=== PATIENT | male | born 1965 | race Caucasian/White ===

== ENCOUNTER → 2019-11-17 10:55 | Outpatient (CLI) | payer BC, SELFPAY ==
--- NOTE | ~2019-11-17 | US_ITS ---
EXAMINATION: US thyroid DATE: 11/17/2019 11:10 INDICATION: Abnormal weight gain. TECHNIQUE: Multiple ultrasound images of the thyroid were obtained. COMPARISON: None. FINDINGS: The right thyroid lobe measures 4.1 x 2.4 x 1.6 cm. The left thyroid lobe measures 3.6 x 1.3 x 1.2 c m. There is normal echotexture and echogenicity throughout the thyroid gland. No discrete nodules id entified. Normal vascular flow is present. IMPRESSION: 1. Normal thyroid. Reviewed, dictated and finalized at location A. IMPRESSION: 1. Normal thyroid.
== END ==
PROVIDERS: PCP Family Medicine; Visit Provider Internal Medicine Endocrinology, Diabetes & Metabolism
DX: R63.5 Abnormal weight gain (principal)
CPT/HCPCS: 76536

== ENCOUNTER 2020-12-22 16:00 | Outpatient (RCR) | payer BC, SELFPAY ==
[2020-11-04 14:13] VITALS: BMI 48.8
[2020-11-04 14:25] VITALS: BMI 48.8
== END 2021-01-19 14:55 | disposition home or self-care (01) ==
LOC: ANHDMC 16:00
PROVIDERS: PCP Family Medicine; Visit Provider Internal Medicine Endocrinology, Diabetes & Metabolism
DX: E11.65 Type 2 diabetes mellitus with hyperglycemia (principal); Z71.3 Dietary counseling and surveillance; Z71.89 Other specified counseling
CPT/HCPCS: 97802; G0108

== ENCOUNTER 2021-07-26 16:56 | Emergency (ER) | payer BC, SELFPAY ==
[2021-07-26 16:58] VITALS: BP 187/72; PULSE 104; RESP 20; TEMP 36.5; O2SAT 95
--- NOTE | 2021-07-26 17:12 | ED.BACK ---
HPI - Back Pain/Injury General Chief Complaint: Back Pain/Injury Stated Complaint: back pain Time Seen by Provider: 07/26/21 17:05 History of Present Illness HPI Narrative: 55-year-old male presents here with lower back pain, he states that he was cutting up a shed and tossing in the dumpster, and that he hurt his back about 2 days ago, it seems to be more worse on the right lower back, does not radiate anywhere, no numbness or tingling, no chest pain or abdominal pain, no difficulty breathing, it is only worse with movements. No family history of dissection. Related Data Home Medications Medication Instructions Recorded Confirmed insulin regular hum U-500 conc 500 500 unit subcut ONCE 06/29/21 06/29/21 unit/mL subcutaneous soln (Humulin R U-500 (Concentrated) Insulin) Allergies Allergy/AdvReac Type Severity Reaction Status Date / Time adhesive Allergy Mild rash Verified 07/26/21 17:00 No Known Allergies Allergy Verified 07/26/21 17:00 Review of Systems Review of Systems: CONST: No fever. C/V: No chest pain RESP: No cough GI: No abdominal pain : No dysuria. M/S: Right lower back pain SKIN: No rash. NEURO: [No focal numbness or weakness] [facility] Past Medical History Medical History Essential (primary) hypertension Hypogonadism in male Mixed hyperlipidemia Obesity, morbid, BMI 50 or higher Obstructive sleep apnea syndrome Type 1 diabetes mellitus with diabetic neuropathy Family History Family History Father Family history of coronary artery disease Other Diabetes mellitus Social History Social History Smoking status: Never smoker Second hand tobacco smoke exposure: Yes Alcohol intake: never Spiritual care concerns: No Exam Narrative: EXAMINATION OF ORGAN SYSTEMS/BODY AREAS: Constitutional: Vital signs per nursing GENERAL:[No acute distress, non-toxic appearing.] Sitting comfortably in the room. HEAD: Normal with no signs of head trauma. EYES: EOMI, conjunctiva normal ENT: Hearing grossly intact LUNGS: Nonlabored breathing. HEART: [Regular rate and rhythm] ABD: [Soft], [nontender to palpation] EXT: Normal range of motion BACK: Tenderness to palpation right lower back; no midline tenderness SKIN: [No rashes or lesions.] NEURO: [Alert and oriented x 3. No gross focal sensory or strength deficits.] Course Vital Signs Vital signs: Vital Signs Temperature 97.7 F 07/26/21 16:58 Pulse Rate 104 H 07/26/21 16:58 Respiratory Rate 20 07/26/21 16:58 Blood Pressure 187/72 H 07/26/21 16:58 Pulse Oximetry 95 07/26/21 16:58 Oxygen Delivery Room Air 07/26/21 16:58 Temperature 97.7 F 07/26/21 16:58 Pulse Rate 104 H 07/26/21 16:58 Respiratory Rate 20 07/26/21 16:58 Blood Pressure 187/72 H 07/26/21 16:58 Pulse Oximetry 95 07/26/21 16:58 Oxygen Delivery Room Air 07/26/21 16:58 Procedures Other Procedure Procedure 1: Other Procedure: Trigger point injection Verbal consent obtained from patient. Area of maximal tenderness in right lower back is cleaned well, with sterile technique 3 cc of lidocaine with epi injected across several planes in the area, patient tolerated this well. No complications. MDM - Back Pain/Injury MDM Narrative Medical decision making narrative: ED COURSE AND MEDICAL DECISION MAKING: ? 55-year-old male with acute back pain without midline tenderness. Normal motor and sensory exam. Patient able to ambulate. No evidence of acute cord compression, osteomyelitis/discitis or cauda equina without saddle anesthesia, urinary retention/incontinence, numbness/tingling in lower extremities, fever, history of IV drug use, cancer or immunosuppression. Doubt AAA or aortic dissection without severe pain/discomfort or any neurovascular deficits. [Ketorolac 30mg IM] given for symptom
[2021-07-26] MEDS: KETOROLAC 30 MG/ML VIAL (*BKC) IM (17:28)
[2021-07-26] MEDS: LIDOCAINE HCL 1% LOCAL INJ 20 ML VIAL (17:28)
== END 2021-07-26 17:51 | disposition home or self-care (01) ==
LOC: ANHED 17:31
PROVIDERS: Emergency Provider Emergency Medicine; PCP Family Medicine
DX: M54.50 Low back pain, unspecified (principal); I10 Essential (primary) hypertension; E78.2 Mixed hyperlipidemia; E10.9 Type 1 diabetes mellitus without complications; Z79.4 Long term (current) use of insulin
CPT/HCPCS: 96372; 99283; J1885

== ENCOUNTER 2021-08-01 16:11 | Emergency (ER) | payer BC, SELFPAY ==
[2021-08-01 16:13] VITALS: BP 156/98; PULSE 81; RESP 18; TEMP 36.8; O2SAT 98
[2021-08-01] MEDS: ORPHENADRINE CITRATE 100 MG TABLET.ER PO (17:23)
[2021-08-01] MEDS: KETOROLAC 30 MG/ML VIAL (*BKC) IM (17:23)
[2021-08-01] MEDS: HYDROcodone/acetaminophen (*CRX) 5-325 MG TABLET 1 TAB PO (17:23)
[2021-08-01] MEDS: LIDOCAINE 5% PATCH 1 PATCH TRANSDERM (17:27)
--- NOTE | 2021-08-01 18:53 | ED.BACK ---
HPI - Back Pain/Injury General Chief Complaint: Back Pain/Injury Stated Complaint: Back pain Time Seen by Provider: 08/01/21 16:20 Source: patient Mode of arrival: ambulatory History of Present Illness HPI Narrative: 55-year-old male seen here last week for similar symptoms. Last week patient was working in his house all weekend when he threw his back out . Patient was treated here had noted some improvement take it easy all week then started working and lifting heavy things again when his back started hurting. Patient currently rating pain 8 out of a 10. Denies any urinary incontinence, stool incontinence, saddle paresthesia, or leg weakness. Pain is localized to the lower back. Patient denies any IV drug usage. Related Data Home Medications Medication Instructions Recorded Confirmed insulin regular hum U-500 conc 500 500 unit subcut ONCE 06/29/21 06/29/21 unit/mL subcutaneous soln (Humulin R U-500 (Concentrated) Insulin) Allergies Allergy/AdvReac Type Severity Reaction Status Date / Time adhesive Allergy Mild rash Verified 07/26/21 17:00 No Known Allergies Allergy Verified 07/26/21 17:00 Review of Systems Review of Systems: CONSTITUTIONAL: Denies fever, chills, or sweats. EYES: Denies visual changes, redness, or discharge. ENT: Denies rhinorrhea, congestion, sore throat, or otalgia. CARDIOVASCULAR: Denies chest pain, palpitations, or edema. RESPIRATORY: Denies cough or dyspnea. GASTROINTESTINAL: Denies abdominal pain, nausea, vomiting, or diarrhea. GENITOURINARY: Denies dysuria or hematuria. SKIN: Denies rash or itching. MUSCULOSKELETAL: Low back pain. Denies joint pain, or myalgia. NEUROLOGIC: Denies headache, numbness, dizziness, or weakness. PSYCHIATRIC: Denies anxiety or depression. [facility] Past Medical History Medical History Essential (primary) hypertension Hypogonadism in male Mixed hyperlipidemia Obesity, morbid, BMI 50 or higher Obstructive sleep apnea syndrome Type 1 diabetes mellitus with diabetic neuropathy Family History Family History Father Family history of coronary artery disease Other Diabetes mellitus Social History Social History Smoking status: Never smoker Second hand tobacco smoke exposure: Yes Alcohol intake: never Spiritual care concerns: No Exam Narrative: GENERAL: Well-appearing, well-nourished, and in no acute distress. HEAD: Normocephalic, atraumatic. EYES: PERRLA and EOMI. NECK: Supple. No adenopathy or masses. No carotid bruits or JVD CHEST: Clear to auscultation. No respiratory distress. No wheezes rales or rhonchi HEART: Regular rate and rhythm. No murmur heard. Normal peripheral pulses. ABDOMEN: Soft, nontender, nondistended, normal active bowel sounds. EXTREMITIES: Normal range of motion. No edema. SKIN: Warm, dry, no rash. NEURO: No focal deficits. Alert and oriented x3. PSYCH: Normal mood and affect. Back/Spine/Pelvis: Cervical Spine: normal cervical lordosis and cervical ROM normal Thoracic/Lumbar Spine: thoraco-lumbar spasm bilaterally, No thoracic spinal tenderness and lumbar spinal tenderness Course Vital Signs Vital signs: Vital Signs Temperature 36.8 C 08/01/21 16:13 Pulse Rate 81 08/01/21 16:13 Respiratory Rate 18 08/01/21 16:13 Blood Pressure 156/98 H 08/01/21 16:13 Pulse Oximetry 98 08/01/21 16:13 Oxygen Delivery Room Air 08/01/21 16:13 Temperature 36.8 C 08/01/21 16:13 Pulse Rate 81 08/01/21 16:13 Respiratory Rate 18 08/01/21 16:13 Blood Pressure 156/98 H 08/01/21 16:13 Pulse Oximetry 98 08/01/21 16:13 Oxygen Delivery Room Air 08/01/21 16:13 MDM - Back Pain/Injury MDM Narrative Medical decision making narrative: Patient's pain is positional in nature and localized to back without signs of cord compression or
== END 2021-08-01 17:33 | disposition home or self-care (01) ==
PROVIDERS: Emergency Provider Nurse Practitioner Family; PCP Family Medicine
DX: M54.50 Low back pain, unspecified (principal); E10.40 Type 1 diabetes mellitus with diabetic neuropathy, unspecified; I10 Essential (primary) hypertension; E78.2 Mixed hyperlipidemia; E66.01 Morbid (severe) obesity due to excess calories; Z68.43 Body mass index [BMI] 50.0-59.9, adult; G47.33 Obstructive sleep apnea (adult) (pediatric); Z79.4 Long term (current) use of insulin
CPT/HCPCS: 96372; 99283; A9270; J1100; J1885

== ENCOUNTER 2021-08-16 09:15 | Emergency (ER) | payer BC, SELFPAY ==
--- NOTE | 2021-08-16 09:23 | ED.EYEPROB ---
HPI - Eye Problem General Chief complaint: Eye Problems Stated complaint: right eye injury Time Seen by Provider: 08/16/21 09:25 Source: patient Mode of arrival: ambulatory Limitations: no limitations History of Present Illness HPI Narrative: 55-year-old male presented for complaint of pain and swelling to the right after injury yesterday. He states he broke a metal drill bit and it flew into his eye, he states he believes his eye was closed at the time. Endorses the pain persisted last night and this morning he woke with eye matted shut. Endorses blurry vision and foreign body sensation. Currently rates pain 8 out of 10. He has not taken anything for pain. Also endorses covid exposure at home and reports symptoms sinus congestion, runny nose, cough and fatigue. MD chief complaint: eye pain Related Data Home Medications Medication Instructions Recorded Confirmed insulin regular hum U-500 conc 500 500 unit subcut ONCE 06/29/21 08/06/21 unit/mL subcutaneous soln (Humulin R U-500 (Concentrated) Insulin) metformin 500 mg tablet,extended tablet PO 08/16/21 release 24 hr semaglutide 1 mg/dose (4 mg/3 mL) ea subcut 08/16/21 subcutaneous pen injector (Ozempic) Allergies Allergy/AdvReac Type Severity Reaction Status Date / Time adhesive Allergy Mild rash Verified 08/06/21 11:32 No Known Allergies Allergy Verified 08/06/21 11:32 Review of Systems Review of Systems: CONSTITUTIONAL: Denies body aches, fever, chills EYES:Endorses swelling, redness and pain to right eye ENT: reports rhinorrhea, congestion CARDIOVASCULAR: Denies chest pain, palpitations RESPIRATORY: Denies dyspnea. GASTROINTESTINAL: Denies abdominal pain, nausea, vomiting, or diarrhea. SKIN: Denies rash, itching, or wounds. MUSCULOSKELETAL: Denies back pain, joint pain, or myalgia. NEUROLOGIC: Denies headache, numbness, tingling, or weakness. All systems reviewed & are unremarkable except as noted in HPI and below PMFSH Past Medical History Medical History Essential (primary) hypertension Hypogonadism in male Mixed hyperlipidemia Obesity, morbid, BMI 50 or higher Obstructive sleep apnea syndrome Type 1 diabetes mellitus with diabetic neuropathy Family History Family History Father Family history of coronary artery disease Other Diabetes mellitus Social History Social History Smoking status: Never smoker Second hand tobacco smoke exposure: Yes Alcohol intake: never Spiritual care concerns: No Comments At time of signature, I have reviewed and agree with nursing past medical, surgical, social and family history unless otherwise noted. Please see nursing chart for further information. There is no relevant family history pertinent to the presenting complaint Exam Narrative: GENERAL: Well-appearing, morbidly obese EYES: right conjunctival injection, upper eye lid swelling/redness, mild clear drainage, EOMI. Lid eversion showed no FB. Rainey lamp showed corneal abrasion. ENT: Mucous membranes pink and moist. CHEST: No respiratory distress. Clear to auscultation. HEART: Regular rate and rhythm. No murmur appreciated. Normal peripheral pulses. SKIN: Warm, dry, no rash. Normal skin turgor. NEURO: No focal deficits. Alert and oriented x3. Steady gait PSYCH: Normal affect. Course Course Emergency Course: Patient is aware of diagnosis, understands and agrees to treatment plan. Anticipatory guidance given. Patient agrees to follow-up as directed and is aware of reasons to seek care at the emergency department. Portions of this record may have been created with voice recognition software Level of Care: Express Care Visit Procedures FB Removal Eye Foreign Body #1: Foreign Body Removal Date: 08/16/21 Location: eye (R[facility]
[2021-08-16 09:24] VITALS: BP 182/78; PULSE 79; RESP 16; TEMP 36.2; O2SAT 99
--- NOTE | 2021-08-16 09:44 | PC.NURSE ---
eye exam done by automobile mechanic motor.
== END 2021-08-16 09:59 | disposition home or self-care (01) ==
PROVIDERS: Emergency Provider Nurse Practitioner Family
DX: S05.01XA Injury of conjunctiva and corneal abrasion without foreign body, right eye, initial encounter (principal); W20.8XXA Other cause of strike by thrown, projected or falling object, initial encounter; Z20.822 Contact with and (suspected) exposure to COVID-19; I10 Essential (primary) hypertension; E78.2 Mixed hyperlipidemia; E10.42 Type 1 diabetes mellitus with diabetic polyneuropathy; G47.33 Obstructive sleep apnea (adult) (pediatric); E66.01 Morbid (severe) obesity due to excess calories; Z68.43 Body mass index [BMI] 50.0-59.9, adult
CPT/HCPCS: 87426; 99213; A9270; C9803; G0463

== ENCOUNTER 2022-01-11 00:22 | Day surgery (SDC) | payer BC, SELFPAY ==
[2021-12-31 14:56] VITALS: BMI 50.1
[2022-01-11 08:12] VITALS: BP 161/72; PULSE 74; RESP 18; TEMP 36.7; O2SAT 99; BMI 49.1
[2022-01-11] MEDS: LACTATED RINGERS 1,000 ML 150 ML IV CONT (08:35)
[2022-01-11 08:37] LABS: Glucose Point of Care 136 mg/dl (65-105)
--- NOTE | 2022-01-11 08:45 | PM.HPGS ---
History of Present Illness History of Present Illness Consent: Risks, benefits, and alternatives have been discussed and questions answered. Patient agrees to proceed with procedure. Chief complaint: neoplasm screening Narrative: Gerald Monteiro is a 56 year old male Presents for screening colonoscopy. Patient's current weight appetite and bowel movements are normal. Patient denies abdominal pain. He has had no bleeding. Family history noncontributory. Review of Systems Review of Systems: Review of systems noncontributory. [facility] Past Medical History Medical History Essential (primary) hypertension Hypogonadism in male Mixed hyperlipidemia Obesity, morbid, BMI 50 or higher Obstructive sleep apnea syndrome Type 1 diabetes mellitus with diabetic neuropathy Surgical History Surgical History H/O arthroscopic knee surgery H/O sinus surgery Family History Family History Father Family history of coronary artery disease Other Diabetes mellitus Social History Social History Smoking packs per day: 2 Smoking cigarettes per day: 40.0 Years smoked: 20 Smoking pack-years: 40.00 Smoking status: Never smoker Second hand tobacco smoke exposure: Yes Smoking end date: 02/29/16 Alcohol intake: current Alcohol use details: RARE Substance use: never Substance use type: does not use Living arrangements: with family Gender identity (if verbalized by the patient): Male Spiritual care concerns: No Agree to blood products: Yes Meds Home Medications and Allergies Home Medications Medication Instructions Recorded Confirmed Type insulin regular hum U-500 conc 500 500 unit subcut ONCE 06/29/21 01/11/22 History unit/mL subcutaneous soln (Humulin R U-500 (Concentrated) Insulin) metformin 500 mg tablet,extended 1 tablet PO 2XD 08/16/21 01/11/22 History release 24 hr semaglutide 1 mg/dose (4 mg/3 mL) 1 ea subcut 08/16/21 11/09/21 History subcutaneous pen injector (Ozempic) simvastatin 20 mg tablet 20 mg PO DAILY #90 tabs 09/21/21 01/11/22 Rx lisinopril 20 mg tablet 20 mg PO DAILY #90 tabs 09/22/21 01/11/22 Rx Allergies Allergy/AdvReac Type Severity Reaction Status Date / Time adhesive Allergy Mild rash Verified 01/11/22 08:17 No Known Allergies Allergy Verified 01/11/22 08:17 Vital Signs Vital Signs - 24 hr 01/11/22 08:12 Temperature 98.0 F Pulse Rate 74 Respiratory Rate 18 Blood Pressure 161/72 H Pulse Oximetry 99 Oxygen Delivery Room Air Exam Narrative: Physical exam reveals patient to be alert. Vital signs stable. HEENT exam is unremarkable. Patient is anicteric. Lungs are clear to auscultation and percussion. Heart is without murmur or extra sounds. Abdomen Is obese. bowel sounds present soft nontender with no hepatosplenomegaly. Digital external rectal exam is normal. Assessment and Plan Assessment and plan (1) Colon cancer screening: Code(s): Z12.11 - Encounter for screening for malignant neoplasm of colon Status: Acute Assessment and Plan: Patient presents for screening colonoscopy. Appears to be at average risk for colon polyps. Further recommendations will be given after endoscopy. (2) Obesity, morbid, BMI 50 or higher: Code(s): E66.01 - Morbid (severe) obesity due to excess calories Status: Acute (3) Type 1 diabetes mellitus with diabetic neuropathy: Code(s): E10.40 - Type 1 diabetes mellitus with diabetic neuropathy, unspecified Status: Acute
--- NOTE | 2022-01-11 08:57 | WPDANESEPPF ---
Anes - Initial Pre Proc Eval Procedure: Operation Date: 01/11/22 09:30 Proposed Procedures p Screening Colonoscopy - Ricky Godinez MD Date/Time: 01/11/22 08:57 Surgeon: Ricky Godinez MD Pre Op Diagnosis: neoplasm screening Patient Data Age: 56 Gender: M Height: 1.85 m Weight: 169.1 kg Last Vital Signs Temp 98.0 F 01/11/22 08:12 Pulse 74 01/11/22 08:12 Resp 18 01/11/22 08:12 BP 161/72 H 01/11/22 08:12 Pulse Ox 99 01/11/22 08:12 O2 Del Method Room Air 01/11/22 08:12 Allergies Allergy/AdvReac Type Severity Reaction Status Date / Time adhesive Allergy Mild rash Verified 01/11/22 08:17 No Known Allergies Allergy Verified 01/11/22 08:17 Home Medications Medication Instructions Recorded Confirmed Type insulin regular hum U-500 conc 500 500 unit subcut ONCE 06/29/21 01/11/22 History unit/mL subcutaneous soln (Humulin R U-500 (Concentrated) Insulin) metformin 500 mg tablet,extended 1 tablet PO 2XD 08/16/21 01/11/22 History release 24 hr semaglutide 1 mg/dose (4 mg/3 mL) 1 ea subcut 08/16/21 11/09/21 History subcutaneous pen injector (Ozempic) simvastatin 20 mg tablet 20 mg PO DAILY #90 tabs 09/21/21 01/11/22 Rx lisinopril 20 mg tablet 20 mg PO DAILY #90 tabs 09/22/21 01/11/22 Rx Laboratory Tests 01/11/22 08:28 POC Capillary Glucose 136 mg/dl H mg/dl (65-105) Patient hx anesthesia problems: none Family hx anesthesia problems: none Results Review: All pre-operative results and documents have been reviewed as part of the pre-operative evaluation. [facility] Past Medical History Medical History Essential (primary) hypertension Hypogonadism in male Mixed hyperlipidemia Obesity, morbid, BMI 50 or higher Obstructive sleep apnea syndrome Type 1 diabetes mellitus with diabetic neuropathy Surgical History Surgical History H/O arthroscopic knee surgery H/O sinus surgery Family History Family History Father Family history of coronary artery disease Other Diabetes mellitus Social History Social History Smoking packs per day: 2 Smoking cigarettes per day: 40.0 Years smoked: 20 Smoking pack-years: 40.00 Smoking status: Never smoker Second hand tobacco smoke exposure: Yes Smoking end date: 02/29/16 Alcohol intake: current Alcohol use details: RARE Substance use: never Substance use type: does not use Living arrangements: with family Gender identity (if verbalized by the patient): Male Spiritual care concerns: No Agree to blood products: Yes Anes - Eval Final PreProcedure Day of Procedure 01/11/22 08:57 Patient weight: super morbidly obese Heart: regular rate and rhythm Lungs: clear to auscultation Airway: Mallampati scale class II Neurological: alert and oriented Last oral intake: >/= 8 hours ASA classification: IV Emergent: no Anesthetic plan: proceed Anesthesia type and monitoring: general GIVS and standard monitoring Results Review: All pre-operative results and documents have been reviewed as part of the pre-operative evaluation. Informed Consent: The patient's anesthetic plan and its attendant risks and benefits were discussed with the patient/family/POA. Questions were solicited and answers provided to the satisfaction of the patient/family/POA.
[2022-01-11 09:44] VITALS: BP 119/78; PULSE 79; RESP 18; O2SAT 100
[2022-01-11 09:53] VITALS: BP 115/63; PULSE 71; RESP 18; O2SAT 97
[2022-01-11 10:03] VITALS: BP 115/70; PULSE 70; RESP 18; O2SAT 96
[2022-01-11 10:05] LABS: Glucose Point of Care 124 mg/dl (65-105)
== END 2022-01-11 10:14 | disposition home or self-care (01) ==
PROVIDERS: PCP Family Medicine; Visit Provider Internal Medicine Gastroenterology
PROC: 0DJD8ZZ Inspection of Lower Intestinal Tract, Via Natural or Artificial Opening Endoscopic (ICD-10-PCS; CPT 45378; principal; 2022-01-11 09:30)
DX: Z12.11 Encounter for screening for malignant neoplasm of colon (principal); D12.4 Benign neoplasm of descending colon; K64.8 Other hemorrhoids; I10 Essential (primary) hypertension; E10.40 Type 1 diabetes mellitus with diabetic neuropathy, unspecified; E78.2 Mixed hyperlipidemia; G47.33 Obstructive sleep apnea (adult) (pediatric); Z87.891 Personal history of nicotine dependence; E66.01 Morbid (severe) obesity due to excess calories; Z68.42 Body mass index [BMI] 45.0-49.9, adult; Z79.4 Long term (current) use of insulin; Z79.899 Other long term (current) drug therapy; Z79.84 Long term (current) use of oral hypoglycemic drugs
CPT/HCPCS: 45385; 82948; 88305; J2704; J7120

== ENCOUNTER 2022-02-02 08:07 | Outpatient (CLI) | payer BC, SELFPAY ==
--- NOTE | ~2022-02-02 | US_ITS ---
US art doppler w press LE BI INDICATION: Open toe wound. Evaluate for peripheral vascular stenosis TECHNIQUE: Segmental pressures and plethysmographic and Doppler waveforms of the brachial and lower e xtremity arteries were obtained. COMPARISON: None. FINDINGS: Left brachial artery pressures of 172 mm Hg. Right brachial artery could not be measured. The right ankle-brachial index (SINGH) is 0.99 (normal >= 0.9-1.0). The right great toe-brachial index (TBI) is 0.71 (normal >= 0.60). The left SINGH could not be obtained. The left TBI is 0.93. There is biphasic flow in the lower extremi ties bilaterally. IMPRESSION: 1. Normal right ankle and toe brachial indices. 2: Left SINGH could not be measured. Left TBI is normal measuring 0.93. Reviewed, dictated and finalized at location A. [facility] [employer] [facility]
== END 2022-02-02 08:08 | disposition home or self-care (01) ==
PROVIDERS: PCP Family Medicine; Visit Provider Physician Assistant Medical
DX: M79.604 Pain in right leg (principal); M79.605 Pain in left leg; S91.209A Unspecified open wound of unspecified toe(s) with damage to nail, initial encounter
CPT/HCPCS: 93923

== ENCOUNTER → 2022-09-17 08:29 | Outpatient (CLI) | payer BC, SELFPAY ==
--- NOTE | ~2022-09-17 | CT_ITS ---
CT of the Abdomen: Indication: Adrenal adenoma Technique: 2.5 mm axial scans were obtained through the abdomen prior to and following intravenous a dministration of 100 cc of Omnipaque 350. Dose reduction technique was used on this scan by utilizing automated exposure control and iterative reconstruction technique. The dose-length product (DLP) was 2742.70 mGy-cm. Findings: Scans through the lung bases there is a 5 mm left lower lobe pulmonary nodule. The liver, spleen, pancreas, gallbladder, adrenals and kidneys are within normal limits. There are at herosclerotic calcifications of the aorta. No lymphadenopathy. Visualized bowel loops are unremarkable. No ascites. Impression: New adrenal lesion/mass identified. 5 mm right lower lobe pulmonary nodule. According to Fleischner Society criteria, for a low-risk charo ent, no further follow-up required. For a high-risk patient, consider 12 month follow-up CT. Reviewed, dictated and finalized at [place] [facility]. Impression: New adrenal lesion/mass identified. 5 mm right lower lobe pulmonary nodule. According to Fleischner Society criteri a, for a low-risk patient, no further follow-up required. For a high-risk patie nt, consider 12 month follow-up CT.
--- NOTE | ~2022-09-17 | MR_ITS ---
EXAMINATION: MR pituitary wo/w con DATE: 09/17/2022 10:09 INDICATION: High cortisol levels. TECHNIQUE: Magnetic resonance imaging (MRI) of the brain and brainstem was performed without and with 20 mL MultiHance intravenous contrast. COMPARISON: None. FINDINGS: The pituitary is normal in size with height of 5 mm and concave superior margin. There is a 4 x 5 x 9 mm hypoenhancing mass in the pituitary posteriorly. The infundibulum is at the midline. Th ere is a small focus of increased T2-weighted signal intensity in the left frontal lobe deep white ma tter, which is normal as an isolated finding. There is no intracranial hemorrhage or acute infarction . The ventricles are normal in size. The orbits are normal. There is mucosal thickening in the parana franchesca sinuses. The mastoid air cells are normal. IMPRESSION: 1. 4 x 5 x 9 mm hypoenhancing mass in the pituitary, consistent with a microadenoma. Reviewed, dictated and finalized at location A. IMPRESSION: 1. 4 x 5 x 9 mm hypoenhancing mass in the pituitary, consistent with a microade noma.
[2022-09-17 08:59] LABS: Estimated Glomerular Filt Rate > 60
== END ==
PROVIDERS: PCP Internal Medicine Endocrinology, Diabetes & Metabolism; Visit Provider Internal Medicine Endocrinology, Diabetes & Metabolism
DX: D35.00 Benign neoplasm of unspecified adrenal gland (principal); R94.7 Abnormal results of other endocrine function studies; E23.6 Other disorders of pituitary gland; R91.1 Solitary pulmonary nodule
CPT/HCPCS: 70553; 74170; A9577; Q9967

== ENCOUNTER 2022-09-18 16:53 | Emergency (ER) | payer BC, SELFPAY ==
--- NOTE | ~2022-09-18 | XR_ITS ---
EXAM: XR knee LT min 4V DATE: 09/18/2022 17:18 HISTORY: FALL YESTERDAY ONTO KNEE, PAIN ALL OVER ,HX ACL MCL SURGERY . COMPARISON: None available. FINDINGS: Normal mineralization. No fracture or dislocation. No lytic or blastic lesion. Mild tricom partmental osteoarthritis. Small joint effusion. No erosion or periosteal change. Soft tissues within normal limits. IMPRESSION: No acute osseous finding in the left knee. Reviewed, dictated and finalized at location K.
[2022-09-18 16:56] VITALS: BP 184/97; PULSE 97; RESP 14; TEMP 36.9; O2SAT 98
[2022-09-18] MEDS: KETOROLAC (*BKC) 60 MG/2 ML VIAL IM (17:38)
[2022-09-18] MEDS: ACETAMINOPHEN 500 MG TABLET 1000 MG PO (17:38)
--- NOTE | 2022-09-18 17:58 | ED.LOWEXIN ---
HPI - Extremity Injury (Lower) General Chief Complaint: Extremity Injury, Lower Stated Complaint: fall, L knee pain Time Seen by Provider: 09/18/22 17:09 Source: patient Mode of arrival: ambulatory Limitations: no limitations History of Present Illness HPI Narrative: 56-year-old male presents today with complaints of left knee pain. Patient has a history of issues with the left knee states he has had a meniscal tear and ligament injuries to this knee in the 90s. Has been fine until yesterday when he was walking on the [place] at [facility] and he tripped and hit his knee. Patient with complaints of pain with extension and flexion of the knee but can weight-bear without issue if he is standing still. Complains of pain a 9 out of a 10 with movement but has not taken any pain medications at home. Related Data Home Medications Medication Instructions Recorded Confirmed insulin regular hum U-500 conc 500 500 unit subcut ONCE 06/29/21 01/27/22 unit/mL subcutaneous soln (Humulin R U-500 (Concentrated) Insulin) metformin 500 mg tablet,extended 1 tablet PO 2XD 08/16/21 01/27/22 release 24 hr semaglutide 1 mg/dose (4 mg/3 mL) 1 ea subcut 08/16/21 01/27/22 subcutaneous pen injector (Ozempic) Allergies Allergy/AdvReac Type Severity Reaction Status Date / Time adhesive Allergy Mild rash Verified 09/18/22 17:02 Review of Systems Review of Systems: All systems reviewed & are unremarkable except as noted in HPI and below ENT: Reports as per HPI Cardiovascular: Cardiovascular: Reports as per HPI Respiratory: Respiratory: Reports as per HPI Gastrointestinal: Gastrointestinal: Reports as per HPI Musculoskeletal: Musculoskeletal: Reports as per HPI Integumentary/Breasts: Skin/Breast: Reports as per HPI Neurologic: Reports as per HPI Psychiatric: Psychiatric: Reports as per HPI PMFSH Past Medical History Medical History (Updated 09/18/22 @ 18:09 by Randa Pradhan APRN) Essential (primary) hypertension Hypogonadism in male Mixed hyperlipidemia Obesity, morbid, BMI 50 or higher Obstructive sleep apnea syndrome Paronychia Type 1 diabetes mellitus with diabetic neuropathy Surgical History Surgical History H/O arthroscopic knee surgery H/O sinus surgery Family History Family History (Reviewed 01/27/22 @ 15:53 by Altagracia Hernández [facility]) Father Family history of coronary artery disease Other Diabetes mellitus Social History Social History (Updated 01/27/22 @ 15:54 by Altagracia Hernández [facility]) Smoking packs per day: 2 Smoking cigarettes per day: 40.0 Years smoked: 20 Smoking pack-years: 40.00 Smoking status: Never smoker Second hand tobacco smoke exposure: Yes Smoking end date: 02/29/16 Alcohol intake: current Alcohol use details: RARE Substance use: never Substance use type: does not use Lack of Transportation: No Lack of Food: Never True Current Housing: I Have Housing Concerned About Future Housing: No Difficulty Paying Gas/Electric Bills: No Difficulty Paying for Meds: No Currently Unemployed: No Education: Master's Degree or Higher Difficulty w/ Childcare or Family Care: No Living arrangements: with family Occupation/Education: occupation Gender identity (if verbalized by the patient): Male Sexual Orientation (if Verbalized by the Patient): Straight or Heterosexual Spiritual care concerns: No Agree to blood products: Yes Exam Const: General: cooperative, healthy appearing, comfortable, no acute distress and well developed Orientation/consciousness: patient oriented x3 HENMT: Head: normal to inspection Eyes: General: appearance normal, both eyes and all related structures Resp: Effort & Inspection: normal respiratory effort and able to speak in complete sentences Auscultation: clear to auscultation bilaterally Cardio: Rate: regular rate Rhythm: regular rhythm Hear
== END 2022-09-18 18:20 | disposition home or self-care (01) ==
PROVIDERS: Emergency Provider Nurse Practitioner Family; PCP Family Medicine
DX: M25.562 Pain in left knee (principal); M25.462 Effusion, left knee; I10 Essential (primary) hypertension; E78.2 Mixed hyperlipidemia; E10.9 Type 1 diabetes mellitus without complications; F17.210 Nicotine dependence, cigarettes, uncomplicated
CPT/HCPCS: 73564; 96372; 99283; A9270; J1885

== ENCOUNTER → 2023-04-01 08:41 | Outpatient (CLI) | payer BC, SELFPAY ==
--- NOTE | ~2023-04-01 | MR_ITS ---
EXAMINATION: MR pituitary wo/w con DATE: 04/01/2023 09:39 INDICATION: Benign neoplasm of pituitary gland. TECHNIQUE: Magnetic resonance imaging (MRI) of the brain and brainstem was performed without and with 20 mL MultiHance intravenous contrast. COMPARISON: Brain MRI 09/17/2022 FINDINGS: The pituitary is normal in size with height of 5 mm and concave superior margin. There is a 4 x 5 x 9 mm mass in the posterior pituitary, which is nonenhancing or hypoenhancing. There is no ac velasquez ischemic infarct or intracranial hemorrhage. There are scattered areas of nonspecific increased T 2-weighted signal intensity in the cerebral white matter, which is within normal limits for the patie nt's age. The ventricles are normal in size there is mucosal thickening in the paranasal sinuses. The orbits are normal. The mastoid air cells are normal. IMPRESSION: 1. 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 Reviewed, dictated and finalized at location A. TECHNICIAN IMPRESSION: 1. Stable 4 x 5 x 9 mm mass in the pituitary, consistent with a microadenoma ve rsus Rathke cleft cyst.
== END ==
PROVIDERS: PCP Family Medicine; Visit Provider Neurological Surgery
DX: D35.2 Benign neoplasm of pituitary gland (principal)
CPT/HCPCS: 70553; A9577

== ENCOUNTER 2023-08-22 16:01 | Outpatient (RCR) | payer BC, SELFPAY | END 2023-11-11 08:54 | disposition home or self-care (01) | LOC: ANHDMC 16:01 | PROVIDERS: PCP Family Medicine; Visit Provider Internal Medicine Endocrinology, Diabetes & Metabolism | DX: E10.40 Type 1 diabetes mellitus with diabetic neuropathy, unspecified (principal); Z71.89 Other specified counseling | CPT/HCPCS: G0108 ==

== ENCOUNTER 2024-04-13 12:37 | Outpatient (CLI) | payer BC, SELFPAY ==
--- NOTE | ~2024-04-13 | MR_ITS ---
EXAMINATION: MR pituitary wo/w con DATE: 04/13/2024 13:34 INDICATION: Benign neoplasm of pituitary gland. TECHNIQUE: Magnetic resonance imaging (MRI) of the brain and brainstem was performed without and with 20 mL MultiHance intravenous contrast. COMPARISON: Brain MRI 04/01/2023, 09/17/2022 FINDINGS: The pituitary is normal in size with height of 5 mm and concave superior margin. There is a 4 x 5 x 9 mm mass in the posterior pituitary, which is nonenhancing or hypoenhancing. There is no ac velasquez ischemic infarct or intracranial hemorrhage. There are scattered areas of nonspecific increased T 2-weighted signal intensity in the cerebral white matter, which is within normal limits for the patie nt's age. The ventricles are normal in size. There is mucosal thickening in the paranasal sinuses. Th e orbits are normal. The mastoid air cells are normal. IMPRESSION: 1. 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 Reviewed, dictated and finalized at location A. TRUCK OPERATOR IMPRESSION: 1. Stable 4 x 5 x 9 mm mass in the pituitary, consistent with a microadenoma ve rsus Rathke cleft cyst.
== END 2024-04-13 12:38 | disposition home or self-care (01) ==
LOC: MICIMG 12:38
PROVIDERS: PCP Family Medicine; Visit Provider Neurological Surgery
DX: D35.2 Benign neoplasm of pituitary gland (principal); E23.6 Other disorders of pituitary gland
CPT/HCPCS: 70553; A9577

== ENCOUNTER 2024-07-08 17:45 | Emergency (ER) | payer BC, SELFPAY ==
[2024-07-08] VITALS (10 sets, daily range): BP systolic 135–177; BP diastolic 69–89; PULSE 71–87; RESP 16–20; TEMP 36.6; O2SAT 94–97
--- NOTE | ~2024-07-08 | CT_ITS ---
CT abdomen pelvis w con Ordering provider: Allyson Lin PA-C History: 58 years Male with . right flank pain . Comparison: September 17, 2022 Technique: CT abdomen and pelvis with IV and without oral contrast. Automated exposure control and it erative reconstruction technique were employed. The dose-length product was 1963.73 mGy-cm. 100 Omnip aque 350 was given IV. Findings: VISUALIZED LOWER CHEST: Normal. UPPER ABDOMINAL ORGANS: Liver: Normal. Gallbladder: Normal. Spleen: Normal. Stomach/duodenum: Normal. Pancreas: Normal. Adrenals: Normal. Kidneys: Tiny stones in the left kidney upper pole are noted. PELVIC ORGANS: The bladder is underfilled. BOWEL AND MESENTERY: Colon: No evidence of diverticulitis. Normal appendix. Small Bowel: Normal. No obstruction. Peritoneum/mesentery: No free air or free fluid. No mesenteric lymphadenopathy. RETROPERITONEUM: Mild atheromatous disease of the abdominal aorta. No retroperitoneal lymphadenopat hy. MUSCULOSKELETAL: Superficial soft tissues: The superficial soft tissues are normal. Bones: Age appropriate degenerative changes of the spine. Bilateral hip osteoarthritic changes. Bilat eral sacroiliitis. IMPRESSION: No evidence of appendicitis, diverticulitis or intestinal obstruction. Reviewed, dictated and finalized at location A.
--- OUTSIDE RECORDS SUMMARY | 2024-07-08 17:48 | XMS_ITS | Clinical Summary ---
Author Organization [facility] Office Center Address [address] [place] [address] Care Team Providers Care Field Tech Name Role Phone Lucretia Randolph MD Primary Care Provider [phone] Allergies Active Allergy Reactions Criticality Noted Date Comments Adhesive Rash Medium 02/24/2022 Latex Rash Medium 02/24/2022 Medications simvastatin (ZOCOR) 20 mg tablet 2 Active Ozempic 0.25 mg or 0.5 mg(2 mg/1.5 mL) pen injector injection 2 Active lisinopriL (PRINIVIL,ZESTRIL ) 20 mg tablet 2 Active HumuLIN R U-500 500 unit/mL CONCENTRATED vial for injection 2 Active Omnipod Dash Pods, Gen 4, cartridge 2 Active doxycycline hyclate 100 mg capsule TAKE 1 CAPSULE BY MOUTH EVERY 12 HOURS FOR 7 DAYS 2 Active metFORMIN (GLUCOPHAGE) 1,000 mg tablet Take 1,000 mg by mouth 2 (two) times a day with meals Active Active Problems Problem Noted Date Diagnosed Date Type 1 diabetes mellitus without complication Assessment & Plan (02/24/2022 3:10 PM TRIAGE ASSISTANT): Insulin, metformin Essential hypertension 02/24/2022 Assessment & Plan (02/24/2022 8:55 AM TRIAGE ASSISTANT): lisinopril Hyperlipidemia 02/24/2022 Assessment & Plan (02/24/2022 3:09 PM TRIAGE ASSISTANT): Simvastatin PAD (peripheral artery disease) 02/24/2022 Assessment & Plan (02/24/2022 3:10 PM TRIAGE ASSISTANT): History of toe wounds likely secondary to trauma regarding most recent construction work. Patient does have palpable distal pulses on exam. Borderline inconclusive ultrasound performed at outside facility. Will have patient scheduled for SINGH within the next month to rule out arterial occlusive disease. I will call patient with results Class 3 severe obesity due t o excess calories with serious comorbidity and body mass index (BMI) of 45.0 to 49.9 in adult 02/24/2022 Assessment & Plan (02/24/2022 3:10 PM TRIAGE ASSISTANT): Educated patient the importance of maintaining an appropriate weight as relates to health benefits. Further management as per primary care provider Social History Tobacco Use Types Packs/Day Years Used Date Smoking Tobacco: Former Cigarettes 2 15 1 - 2011 Smokeless Tobacco: Never Tobacco Cessation:Counseling Given: No Personal Safety Answer Date Recorded Getting School Help Needed Not on file 04/29 Sex and Gender Information Value Date Recorded Sex Assigned at Not on file Legal Sex Male 2:39 AM TRIAGE ASSISTANT Gender Identity Not on file Sexual Orientation Not on file Obstetrics History Last Filed Vital Signs Vital Sign Reading Time Taken Comments Blood Pressure - - Pulse - - Temperature - - Respiratory Rate - - Oxygen Saturation - - Inhaled Oxygen Concentration - - Weight 167.8 kg (370 lb) 02/24/2022 8:33 AM TRIAGE ASSISTANT Height 185.4 cm (6' 1 ) 02/24/2022 8:33 AM TRIAGE ASSISTANT Body Mass Index 48.82 02/24/2022 8:33 AM TRIAGE ASSISTANT Plan of Treatment Health Maintenance Due Date Last Done Comments Albumin Creatinine Ratio, Urine 1965 Colon Cancer Screening-Colonoscopy 1965 Depression Screening 1965 Foot Exam 1965 Hemoglobin A1C 1965 Hepatitis C Screening 1965 Prostate Cancer Screening-PSA 1965 TSH Level 1965 eGFR 1965 Dilated Eye Exam 12/30/1975 Lipid Panel 12/30/1975 DTaP/Tdap/Td Vaccine (1 - Tdap) 1976 Hepatitis B Screening 12/30/1983 Regular Well Visit/Exam 18-64 12/30/1983 Zoster Vaccine (1 of 2) 12/30/2015 Pneumococcal vaccine <65 (2 of 2 - PCV) 01/16/2020 01/15/2019 Covid-19 Vaccine (5 - 2023-2 5 season) 2023 11/28/2021, 01/02/2021, 05/03/2020, Additional history exists Influenza Vaccine (#1) 2023 , 12/22/2020, 12/08/2019, Additional history exists Insurance [id number] [place] [id number] [employer] OOS [facility] CHOICE OOS [employer] OOS Care Teams Field Tech Relationship Specialty Start Date End Date Lucretia Randolph MD PCP - General Family Medicine 02/05/22
--- OUTSIDE RECORDS SUMMARY | 2024-07-08 17:48 | XMS_ITS ---
Author Organization [facility] Address [address] [place], [place] [id number] Care Team Providers Care Marble And Granite Polisher Name Role Phone PARVEZ SORIANO Unavailable [phone] Lucretia Randolph Unavailable Unavailable Allergies Allergen (clinical drug ingredient) Drug/Non Drug Allergy documented on EMR Reaction Allergy Type Onset Date Status Adhesive Unknown Allergy Active Latex Latex Unknown Allergy Active REASON FOR VISIT Lamisil follow-up Medications Medication SIG (Take, Route, Frequency, Duration) Notes Start Date End Date Status Insulin Cartridge 3ML Active Mounjaro 5 MG/0.5ML as directed Subcutaneous Active Metformin & Diet Manage Prod Active Lisinopril 20 MG 1 tablet Orally Once a day Active Simvastatin 20 MG 1 tablet in the even ing Orally Once a day Active Social History Tobacco Use: Social History Observation Description Date Details (start date - stop date) Former Smoker NA - 05/22/2014 Tobacco Control (Standard) Question Answer Notes Tobacco use: Former smoker When did you stop smoking? 05/22/2014 Vital Signs Height 73 in 01/19/2024 Weight 350 lbs 01/19/2024 BMI 46.17 kg/m2 01/19/2024 Height-cm 185.42 cm 01/19/2024 Weight-kg 158.76 kg 01/19/2024 Encounters Encounter Location Date Provider Diagnosis [facility] [address] [place], [place] [id number] 01/19/2024 PARVEZ SORIANO Fungal infection of nail B35.1 ; Pain in right toe(s) M79.674 ; Pain in left toe(s) M79.675 and Type 2 diabetes mellitus without complications E11.9 Assessments Encounter Date Diagnosis (ICD Code) Assessment Notes Treatment Notes Treatment Clinical Notes Section Notes 01/19/2024 Fungal infection of nail (ICD-10 - B35.1) 01/19/2024 Pain in right toe(s) (ICD-10 - M79.674) 01/19/2024 Pain in left toe(s) (ICD-10 - M79.675) 01/19/2024 Type 2 diabetes mellitus without complications (ICD-10 - E11.9) 01/19/2024 Other Nails 1-5 Bilateral were debrided extensively with nail nippers and emery board, reducing length and girth to pink healthy tissue with any subungual debris and necrotic tissue removed Plan Of Treatment Treatment Notes Assessment Notes Other Nails 1-5 Bilateral were debrided extensively with nail nippers and emery board, reducing length and girth to pink healthy tissue with any subungual debris and necrotic tissue removed Progress Notes * Gerald PEDROZADOB:[birth year] (58 yo M)Acc No.[id number]:01/19/2024 Patient: Pat DARIANLUZBECKIEMichaelGerald Provider: Cj Soriano DPM :1965 A ge:58 Y S ex:Male Date:01/19/2024 Address:[address] [place], [place] [id number] Subjective: * Chief Complaints: * L amisil follow-up * HPI: H PI: Follow Up Visit P atient presents for follow-up visit for fungal nail check on bilateral feet. He states he has been using Lamisil, but hasn't really noticed any difference. Patient states their problem is unchanged. MA: sea. * ROS: G eneral / Constitutional: Patient denies c hills, fever. E ndocrine: Patient denies e xcessive thirst, frequent urination. ? C ardiovascular: Patient denies s hortness of breath, chest pain. S kin: Patient denies m ole changes. * Medical History: * Surgical History: K nee Surgery 1991 * Hospitalization/Major Diagno stic Procedure: D enies Past Hospitalization * Family History: F ather: unknown, Diabetic. B rother: unknown, Diabetic. S ister: unknown, Diabetic.? * Social History: T obacco Use: T obacco Control (Standard) T obacco use: F ormer smoker W sonu did you stop smoking? 0 05/22/2014 D rugs/Alcohol: D o you drink alcohol?: No. * Medications: T akingInsulin Cartridge 3ML Mounjaro 5 MG/0.5ML Solution Auto-injector as directed Subcutaneous Metformin & Diet Manage Prod Lisinopril 20 MG Tablet 1 tablet Orally Once a day Simvastatin 20 MG Tablet 1 tablet in the evening Orally Once a day Medication List reviewed and reconciled with the patientTaking Insulin Cartridge 3ML Taking Mounjaro 5 MG/0.5ML Solution Auto-injector as directed Subcutaneous Taking Metformin & Diet Manage Prod Taking Lisinopril 20 MG Tablet 1 tablet Orally Once a day Taking Simvastatin 20 MG Tablet 1 tablet in the evening Orally Once a day Medication List reviewed and reconciled with the patient * Allergies: Karen Allan[Allergies Verified] Objective: * Vitals: S hoe Size: 13, Wt:350lbs, Wt-k.76 kg, Ht: 73 in, Ht-cm: 185.42 cm, BMI:46.17Index, Body Surface Area: 2.86. * Examination: P hysical Examination: Gen: T he patient is awake, alert, well developed, well groomed and well nourished. They are in no apparent distress. . Musc: F oot structure is normal. No abnormalities noted. Muscle strength is 5/5 to all joints bilaterally. There is no pain on palpation. . Derm: S kin is warm and dry, with no rashes, good skin turgor and normal hair distribution. Nails are thick, discolored, and dystrophic with subungual debris. They are painful to palpation. . Neuro: G rossly intact to light touch bilateral.. Vasc: D orsalis pedis and posterior tibial pulses 2+ bilaterally. No edema noted. Capillary fill time < 3 seconds to all digits. . Assessment: * Assessment: 1. F ungal infection of nail - B35.1 (Primary) 2 . P ain in right toe(s) - M79.674 3 . P ain in left toe(s) - M79.675 4 . T ype 2 diabetes mellitus without complications - E11.9 Plan: * Treatment: * Immunizations: Immunization record has been reviewed and updated. * Procedure Codes: * Billing Information: * Visit Code: 76478 Office Visit, Est Pt., Level 3. * Procedure Codes: * Sign off status: Completed true * Provider: Cj Soriano DPM Date: 03/20/2023 Generated for Tala sheppard/Marcio/Adrian on: 0 07/08/2024 05:47 PM CDT History and Physical Notes * HPI (History of Present Illness) Category Sub-Category Detail Notes Category Not es HPI Follow Up Visit Patient presents for follow-up visit for fungal nail check on bilateral feet. He states he has been using Lamisil, but hasn't really noticed any difference. Patient states their problem is unchanged. MA: sea Examination Category Sub-Category Detail Notes Category Not es Physical Examination Gen: The patient is awake, alert, well developed, well groomed and well nourished. They are in no apparent distress. Vasc: Dorsalis pedis and p osterior tibial pulses 2+ bilaterally. No edema noted. Capillary fill time < 3 seconds to all digits. Neuro: Grossly intact to li ght touch bilateral. Musc: Foot structure is no rmal. No abnormalities noted. Muscle strength is 5/5 to all joints bilaterally. There is no pain on palpation. Derm: Skin is warm and dry , with no rashes, good skin turgor and normal hair distribution. Nails are thick, discolored, and dystrophic with subungual debris. They are painful to palpation.
--- OUTSIDE RECORDS SUMMARY | 2024-07-08 17:48 | XMS_ITS ---
Author Organization [facility] Address [address] [place], [place] [id number] Care Team Providers Care Social Director Name Role Phone PETER PARVEZ Unavailable [phone] Lucretia Randolph Unavailable Unavailable Allergies Allergen (clinical drug ingredient) Drug/Non Drug Allergy documented on EMR Reaction Allergy Type Onset Date Status Adhesive Unknown Allergy Active Latex Latex Unknown Allergy Active REASON FOR VISIT lamisil check Social History Tobacco Use: Social History Observation Description Date Details (start date - stop date) Former Smoker NA - NA Tobacco Use/Smoking Question Answer Notes Tobacco use: former smoker Encounters Encounter Location Date Provider Diagnosis [facility] [address] [place], [place] [id number] 10/13/2023 PARVEZ SORIANO Fungal infection of nail B35.1 ; Pain in right toe(s) M79.674 ; Pain in left toe(s) M79.675 and Type 2 diabetes mellitus without complications E11.9 Assessments Encounter Date Diagnosis (ICD Code) Assessment Notes Treatment Notes Treatment Clinical Notes Section Notes 10/13/2023 Fungal infection of nail (ICD-10 - B35.1) 10/13/2023 Pain in right toe(s) (ICD-10 - M79.674) 10/13/2023 Pain in left toe(s) (ICD-10 - M79.675) 10/13/2023 Type 2 diabetes mellitus without complications (ICD-10 - E11.9) 10/13/2023 Other Nails 1-5 Bilateral were debrided extensively [...] Notes * Gerald PEDROZADOB:[birth year] (58 yo M)Acc No.[id number]:10/13/2023 Patient: Gerald WOOD Provider: Cj Soriano DPM :1965 A ge:57 Y S ex:Male Date:10/13/2023 Address:On [facility] of [id number] Subjective: * Chief Complaints: * L amisil check * HPI: H PI: Follow Up Visit P atient presents for follow-up visit for nail fungus. Patient states he thinks the medicine is working. He states he kept loosing nails, but hasn't lost any since he started taking the medicine. Patient states their problem is improving. MA: sea. * ROS: G eneral / Constitutional: Patient denies c hills, fever. E ndocrine: Patient denies e xcessive thirst, frequent urination. ? C ardiovascular: Patient denies s hortness of breath, chest pain. S kin: Patient denies m ole changes. * Medical History: * Surgical History: K nee Surgery * Hospitalization/Major Diagno stic Procedure: * Family History: F ather: unknown, Diabetic. B rother: unknown, Diabetic. S ister: unknown, Diabetic.? * Social History: T obacco Use: T obacco Use/Smoking T obacco use: f ormer smoker D rugs/Alcohol: D o you drink alcohol?: No. * Medications: N one * Allergies: L atexAdhesive Objective: * Vitals: * Examination: P hysical Examination: Gen: T [...] complications - E11.9 Plan: * Treatment: * Procedure Codes: * Billing Information: * Visit Code: 74897 Office Visit, Est Pt., Level 3. * Procedure Codes: * Sign off status: Completed true * Provider: Cj Soriano DPM Date: 0 10/13/2023 Generated for Tala sheppard/Marcio/Adrian on: 0 07/08/2024 05:47 PM CDT History and Physical Notes * HPI (History of Present Illness) Category Sub-Category Detail Notes Category Not es HPI Follow Up Visit Patient presents for follow-up visit for nail fungus. Patient states he thinks the medicine is working. He states he kept loosing nails, but hasn't lost any since he started taking the medicine. Patient states their problem is improving. MA: sea Examination Category Sub-Category Detail Notes [...]
--- OUTSIDE RECORDS SUMMARY | 2024-07-08 17:48 | XMS_ITS | Referral Summary ---
Author Organization [facility] Office Center Address [address] [place] [address] Care Team Providers Care Electric Wirer Name Role Phone Lucretia Randolph MD Primary Care Provider [phone] Allergies Active Allergy Reactions Criticality Noted Date [...] complication Assessment & Plan (02/24/2022 3:10 PM INVESTIGATOR OPERATOR): Insulin, metformin Essential hypertension 02/24/2022 Assessment & Plan (02/24/2022 8:55 AM INVESTIGATOR OPERATOR): lisinopril Hyperlipidemia 02/24/2022 Assessment & Plan (02/24/2022 3:09 PM INVESTIGATOR OPERATOR): Simvastatin PAD (peripheral artery disease) 02/24/2022 Assessment & Plan (02/24/2022 3:10 PM INVESTIGATOR OPERATOR): History of toe wounds likely secondary to [...] 02/24/2022 Assessment & Plan (02/24/2022 3:10 PM INVESTIGATOR OPERATOR): Educated patient the importance of maintaining an [...] on file Legal Sex Male 2:39 AM INVESTIGATOR OPERATOR Gender Identity Not on file Sexual Orientation Not on file Last Filed Vital Signs Vital Sign Reading Time Taken Comments Blood Pressure - - Pulse - - Temperature - - Respiratory Rate - - Oxygen Saturation - - Inhaled Oxygen Concentration - - Weight 167.8 kg (370 lb) 02/24/2022 8:33 AM INVESTIGATOR OPERATOR Height 185.4 cm (6' 1 ) 02/24/2022 8:33 AM INVESTIGATOR OPERATOR Body Mass Index 48.82 02/24/2022 8:33 AM INVESTIGATOR OPERATOR Plan of Treatment Not on file Insurance [employer] OOS BLUE ACC CHOICE OOS Member Subscriber Plan / Payer ( fective 2022-Present) Name:Gerald Monteiro Relation to Subscriber:Self Name:Gerald Monteiro Payer ID:[id number] ([facility]) Type:Degreed Address: [address] [place] [address] BLUE ACCESS OOS Member Subscriber Plan / Payer ( fective 2022-Present) Name:Gerald Monteiro Relation to Subscriber:Self Name:Gerald Monteiro Payer ID:[id number] ([facility]) Type:Degreed Address: [place] [id number] [place] [address] Care Teams Electric Wirer Relationship Specialty Start Date End Date Lucretia Randolph MD PCP - General Family Medicine 02/05/22
--- OUTSIDE RECORDS SUMMARY | 2024-07-08 17:49 | XMS_ITS ---
Author Organization [facility] Address [address] [place], [place] [id number] Care Team Providers Care Playback Operator Name Role Phone PARVEZ GREEN [phone] Lucretia Randolph Unavailable Unavailable Encounters Encounter Location Date Provider Diagnosis [facility] [address] [place], [place] [id number] 09/20/2023 PARVEZ GREEN Plan Of Treatment No Information Progress Notes * Gerald PEDROZADOB:[birth year] (57 yo M)Acc No.[id number]:09/20/2023 Patient: Gerald WOOD :1965 A ge:57 Y S ex:Male Address:[address] [place] [address] * true * Date: Generated for Deepaki valarie/Marcio/eTransmitting on: 0 07/08/2024 05:49 PM CDT
--- OUTSIDE RECORDS SUMMARY | 2024-07-08 17:49 | XMS_ITS | Patient Health Record ---
Author Organization [facility] Address [address] [place], [place] [id number] Care Team Providers Care Last Inserter Name Role Phone PARVEZ GREEN Unavailable [phone] Lucretia Randolph Unavailable Unavailable Allergies Allergen (clinical drug ingredient) Drug/Non Drug Allergy documented on EMR Reaction Allergy Type Onset Date Status Adhesive Unknown Allergy Active Latex Latex Unknown Allergy Active Reason For Referral No Information Medications Medication SIG (Take, Route, Frequency, Duration) [...] did you stop smoking? 05/22/2014 Vital Signs Height-cm 185.42 cm 01/19/2024 Weight-kg 158.76 kg 01/19/2024 Height 73 in 01/19/2024 Weight 350 lbs 01/19/2024 BMI 46.17 kg/m2 01/19/2024 Encounters Encounter Location Date Provider Diagnosis [facility] [address] [place], [place] [id number] 10/13/2023 PARVEZ GREEN Fungal infection of nail B35.1 ; Pain in right toe(s) M79.674 ; Pain in left toe(s) M79.675 and Type 2 diabetes mellitus without complications E11.9 [facility] [address] [facility] [address] [place], [place] [id number] 01/19/2024 PARVEZ GREEN Fungal infection of nail B35.1 ; Pain in right toe(s) M79.674 ; Pain in left toe(s) M79.675 and Type 2 diabetes mellitus without complications E11.9 [facility] [place] [address] [id number] 08/12/2023 PARVEZ GREEN [facility] [place] [address] [id number] 08/15/2023 PARVEZ GREEN [facility] [place] [address] [id number] 08/15/2023 PARVEZ GREEN [facility] [place] [address] [id number] 09/20/2023 PARVEZ GREEN Assessments Encounter Date Diagnosis (ICD Code) Assessment Notes Treatment Notes Treatment Clinical Notes Section Notes 10/13/2023 Fungal infection of nail (ICD-10 - B35.1) 01/19/2024 Fungal infection of nail (ICD-10 - B35.1) 01/19/2024 Pain in right toe(s) (ICD-10 - M79.674) 10/13/2023 Pain in right toe(s) (ICD-10 - M79.674) 10/13/2023 Pain in left toe(s) (ICD-10 - M79.675) 01/19/2024 Pain in left toe(s) (ICD-10 - M79.675) 01/19/2024 Type 2 diabetes mellitus without complications (ICD-10 - E11.9) 10/13/2023 Type 2 diabetes mellitus without complications (ICD-10 - E11.9) 10/13/2023 Other Nails 1-5 Bilateral were debrided extensively with nail nippers and emery board, reducing length and girth to pink healthy tissue with any subungual debris and necrotic tissue removed 01/19/2024 Other Nails 1-5 Bilateral were debrided extensively with nail nippers and emery board, reducing length and girth to pink healthy tissue with any subungual debris and necrotic tissue removed Plan Of Treatment No Information Insurance Providers Payer Name Payer Address Payer Phone Subscriber Number Group Number Insured Name Patient Relationship to Insured Coverage Start Date Coverage End Date [facility] ([facility] ATTN CLAIMS [address] [place] [address] [id number] Gerald Pedroza Self - patient is the insured Medical (General) History Medical History History ICD Code Sleep apnea Diabetic hypertension high blood pressure Surgical History Surgery Date(Month/Year) Knee Surgery 1991
--- OUTSIDE RECORDS SUMMARY | 2024-07-08 17:49 | XMS_ITS | Clinical Summary ---
Author Organization [facility] Address [address] [place] [address] Care Team Providers Care Clay Miner Name Role Phone Unavailable Primary Care Provider Unavailabl e Immunizations Immunization Administration Dates Next Due Covid-19, Mrna, Lnp-s, PF, 1 00 mcg/0.5 mL Dose (Moderna) 01/02/2021 Social History Tobacco Use Types Packs/Day Years Used Date Smoking Tobacco: Never Assessed Sex and Gender Information Value Date Recorded Sex Assigned at Not on file Legal Sex Male 11:19 AM CDT Gender Identity Not on file Sexual Orientation Not on file Plan of Treatment Health Maintenance Due Date Last Done Comments Hepatitis C Virus (HCV) Screening 1965 TdaP Immunization 1965 Hepatitis B Immunization (1 of 3 - 19+ 3-dose series) 1984 Colonoscopy 2010 Colorectal Cancer Screening 2010 Cologuard 12/30/2015 Immunochemical Fecal Occult Blood 12/30/2015 Zoster Immunization (1 of 2) 12/30/2015 Pneumococcal Immunization (50+ years) (2 of 2 - PCV) 01/16/2020 01/15/2019 PSA Discussion 2020 Influenza Immunization (#1) 10/30/202311/29, 12/08/2019, 12/22/2018, Additional history exists SARS-COV-2 Immunization ( season) 2023 01/02/2021, 05/03/2020, 04/05/2020 Respiratory Syncytial Virus (RSV) Immunization (Adult) (1 - 1-dose 75+ series) 2040 Pneumococcal Immunization Combined Discontinued 01/15/2019 Meningococcal Immunization (ACWY) Aged Out No longer eligible based on patient's age to complete this topic Rotavirus Immunization Aged Out No lo nger eligible based on patient's age to complete this topic
--- OUTSIDE RECORDS SUMMARY | 2024-07-08 18:47 | XMS_ITS | Referral Summary ---
Author Organization [facility] Address [address] [place] [address] Care Team Providers Care Construction Plumber Name Role Phone Lucretia Randolph MD Primary Care Provider [phone] Allergies Active Allergy Reactions Criticality Noted Date [...] complication Assessment & Plan (02/24/2022 3:10 PM SPACE SYSTEMS OPERATIONS SUPERINTENDENT): Insulin, metformin Essential hypertension 02/24/2022 Assessment & Plan (02/24/2022 8:55 AM SPACE SYSTEMS OPERATIONS SUPERINTENDENT): lisinopril Hyperlipidemia 02/24/2022 Assessment & Plan (02/24/2022 3:09 PM SPACE SYSTEMS OPERATIONS SUPERINTENDENT): Simvastatin PAD (peripheral artery disease) 02/24/2022 Assessment & Plan (02/24/2022 3:10 PM SPACE SYSTEMS OPERATIONS SUPERINTENDENT): History of toe wounds likely secondary to [...] 02/24/2022 Assessment & Plan (02/24/2022 3:10 PM SPACE SYSTEMS OPERATIONS SUPERINTENDENT): Educated patient the importance of maintaining an [...] on file Legal Sex Male 2:39 AM SPACE SYSTEMS OPERATIONS SUPERINTENDENT Gender Identity Not on file Sexual Orientation Not on file Last Filed Vital Signs Vital Sign Reading Time Taken Comments Blood Pressure - - Pulse - - Temperature - - Respiratory Rate - - Oxygen Saturation - - Inhaled Oxygen Concentration - - Weight 167.8 kg (370 lb) 02/24/2022 8:33 AM SPACE SYSTEMS OPERATIONS SUPERINTENDENT Height 185.4 cm (6' 1 ) 02/24/2022 8:33 AM SPACE SYSTEMS OPERATIONS SUPERINTENDENT Body Mass Index 48.82 02/24/2022 8:33 AM SPACE SYSTEMS OPERATIONS SUPERINTENDENT Plan of Treatment Not on file Insurance [employer] OOS BLUE ACC CHOICE OOS BLUE ACCESS OOS Care Teams Construction Plumber Relationship Specialty Start Date End Date Lucretia Randolph MD PCP - General Family Medicine 02/05/22
--- OUTSIDE RECORDS SUMMARY | 2024-07-08 18:47 | XMS_ITS | Clinical Summary ---
Author Organization [facility] Address [address] [place] [address] Care Team Providers Care Casing Tester Name Role Phone Lucretia Randolph MD Primary Care Provider [phone] Allergies Active Allergy Reactions Criticality Noted Date [...] complication Assessment & Plan (02/24/2022 3:10 PM HIDE SELECTOR): Insulin, metformin Essential hypertension 02/24/2022 Assessment & Plan (02/24/2022 8:55 AM HIDE SELECTOR): lisinopril Hyperlipidemia 02/24/2022 Assessment & Plan (02/24/2022 3:09 PM HIDE SELECTOR): Simvastatin PAD (peripheral artery disease) 02/24/2022 Assessment & Plan (02/24/2022 3:10 PM HIDE SELECTOR): History of toe wounds likely secondary to [...] 02/24/2022 Assessment & Plan (02/24/2022 3:10 PM HIDE SELECTOR): Educated patient the importance of maintaining an [...] on file Legal Sex Male 2:39 AM HIDE SELECTOR Gender Identity Not on file Sexual Orientation Not on file Obstetrics History Last Filed Vital Signs Vital Sign Reading Time Taken Comments Blood Pressure - - Pulse - - Temperature - - Respiratory Rate - - Oxygen Saturation - - Inhaled Oxygen Concentration - - Weight 167.8 kg (370 lb) 02/24/2022 8:33 AM HIDE SELECTOR Height 185.4 cm (6' 1 ) 02/24/2022 8:33 AM HIDE SELECTOR Body Mass Index 48.82 02/24/2022 8:33 AM HIDE SELECTOR Plan of Treatment Health Maintenance Due Date [...] , 12/22/2020, 12/08/2019, Additional history exists Insurance [address] [place] [id number] [employer] OOS BLUE [facility] CHOICE OOS [employer] OOS Care Teams Casing Tester Relationship Specialty Start Date End Date Lucretia Randolph MD PCP - General Family Medicine 02/05/22
--- OUTSIDE RECORDS SUMMARY | 2024-07-08 18:47 | XMS_ITS | Data Portability ---
Author Organization [facility] [employer], Main Office Address [address] [place] [address] Care Team Providers Care Neurophysiological Technician Name Role Phone DENNISE BULLARD Primary Care Provider [phone] Assessment No assessment recorded. Plan of Treatment Reminders Order Date Submit Date Provider Last Modified By Organization Details Last Modified Time Details Appointments None recorded. Lab lipid panel, serum 2022 023 [employer] [facility], [address], [place], [address], 3 10:49:21 TSH + free T4, serum 2022 023 [employer] [facility], [address], [place], [address], 3 10:49:20 dhea-sulfa te, serum 2022 023 [place] [address] [employer] Jessica [facility], [address], [place], [address], 3 09:54:41 HbA1c (hemoglobi n A1c), blood 2022 023 [facility] [employer] [facility], [address], [place], [address], 3 09:54:40 CMP, serum or plasma 2022 023 [place] [address] [employer] [facility], [address], [place], [address], 3 09:54:40 microalbum in/creatin ine, mass ratio, urine 2022 023 [email or web address] [employer] [facility], [address], [place], [address], 3 09:54:40 Referral None recorded. Procedures None recorded. Surgeries None recorded. Imaging CT, adrenal, w/ wo contrast 2022 023 [facility] (Imaging), [address] [place] [address], [address], 3 16:30:48 MRI, pituitary, w/wo contrast 2022 023 [facility] (Imaging), [address] [place] [address], [address], 3 16:31:00 Medication Orders None recorded. Patient TargetsNo targets recorded. Patient InstructionsNo instructions recorded. Reason for Referral None Reported. Results Created Date Observation Date Name Description Value Unit Range Abnormal Flag Note LastModifiedBy Organization Detail LastModifiedTime 04/18/19 22 04/19/2021 HEMOG LOBIN A1C hemoglobin A1C 7.9 %_of_ total _HGB <5.7 high For someo ne witho ut known diabe pierce, a hemog lobin A1c value of 6.5% or great er indic ates that they may have diabe pierce and this shoul d be confi rmed with a follo w-up test. For someo ne with known diabe pierce, a value <7% indic ates that their diabe pierce is well contr olled and a value great er than or equal to 7% indic ates subop timal contr ol. A1c targe ts shoul d be indiv idual ized based on durat ion of diabe pierce, age, comor bid condi tions , and other consi derat ions. Curre ntly, no conse nsus exist s regar ding use of hemog lobin A1c for diagn osis of diabe pierce for child amanda. Not Available [employer] [facility] [address], [address], 04/19/2021 14:52:48 04/18/19 22 04/19/2021 TSH+F REE T4 TSH 2.81 mIU/L 0.40-4 .50 normal Not Available [address], [address], 04/19/2021 14:52:48 04/18/19 22 04/19/2021 TSH+F REE T4 T4, free 1.2 NG/dL 0.8-1. 8 normal Not Available [address], [address], 04/19/2021 14:52:48 04/18/19 22 04/19/2021 ALBUM IN, RANDO M URINE W/CRE ATINI NE creatinine, random urine 91 mg/dL 20-320 normal Not Available [address], [address], 04/19/2021 14:52:47 04/18/19 22 04/19/2021 ALBUM IN, RANDO M URINE W/CRE ATINI NE albumin, urine 1.6 mg/dL see note: normal Refer ence Range : Refer ence Range Not estab lishe d Not Available [address], [address], 04/19/2021 14:52:47 04/18/19 22 04/19/2021 ALBUM IN, RANDO M URINE W/CRE ATINI NE albumin/crea tinine ratio, random urine 18 mcg/m g_cre at <30 normal The ADA defin es abnor malit ies in album in excre tion as follo ws: Album inuri a Categ ory Resul t (mcg/ mg creat inine ) Patricia l to Mildl y incre ased <30 Moder ately incre ased 30-29 9 Sever julisa incre ased > OR = 300 The ADA recom mends that at least two of three speci mens colle cted withi n a 3-6 month perio d be abnor mal befor e consi ralph g a patie nt to be withi n a diagn ostic categ ory. Not Available [address] [address] [place], [address], 04/19/2021 14:52:47 04/18/19 22 04/19/2021 COMPR EHENS DARRYL METAB OLIC PANEL glucose 112 mg/dL 65-99 high Fasti ng refer ence inter hossein For someo ne witho ut known diabe pierce, a gluco se value betwe en 100 and 125 mg/dL is consi stent with predi abete s and shoul d be confi rmed with a follo w-up test. Not Available [address] , [place], [address], 04/19/2021 14:52:46 04/18/19 22 04/19/2021 COMPR EHENS DARRYL METAB OLIC PANEL urea nitrogen (BUN) 13 mg/dL 7-25 normal Not Available [address] [address] , [place], [address], 04/19/2021 14:52:46 04/18/19 22 04/19/2021 COMPR EHENS DARRYL METAB OLIC PANEL creatinine 0.79 mg/dL 0.70-1 .33 normal For patie nts >49 years of age, the refer ence limit for Creat inine is appro ximat julisa 13% highe r for peopl e ident ified as Afric an-Am joss n. Not Available [facility] [address] [address] , [place], [address], 04/19/2021 14:52:46 04/18/19 22 04/19/2021 COMPR EHENS DARRYL METAB OLIC PANEL eGFR non-afr. gibraltarian 101 mL/mi n/1.7 3m2 > or = 60 normal Not Available [facility] [address] [address] [place], [address], 04/19/2021 14:52:46 04/18/19 22 04/19/2021 COMPR EHENS DARRYL METAB OLIC PANEL eGFR 117 mL/mi n/1.7 3m2 > or = 60 normal Not Available [address], [address], 04/19/2021 14:52:46 04/18/19 22 04/19/2021 COMPR EHENS DARRYL METAB OLIC PANEL BUN/creatini ne ratio not applic able (calc ) 6-22 Not Available [address], [address], 04/19/2021 14:52:46 04/18/19 22 04/19/2021 COMPR EHENS DARRYL METAB OLIC PANEL sodium 139 mmol/ L 135-14 6 normal Not Available [address], [address], 04/19/2021 14:52:46 04/18/19 22 04/19/2021 COMPR EHENS DARRYL METAB OLIC PANEL potassium 4.8 mmol/ L 3.5-5. 3 normal Not Available [address], [address], 04/19/2021 14:52:46 04/18/19 22 04/19/2021 COMPR EHENS DARRYL METAB OLIC PANEL chloride 101 mmol/ L 98-110 normal Not Available [address], [address], 04/19/2021 14:52:46 04/18/19 22 04/19/2021 COMPR EHENS DARRYL METAB OLIC PANEL carbon dioxide 32 mmol/ L 20-32 normal Not Available [address], [address], 04/19/2021 14:52:46 04/18/19 22 04/19/2021 COMPR EHENS DARRYL METAB OLIC PANEL calcium 9.0 mg/dL 8.6-10 .3 normal Not Available [facility] [address], [address], 04/19/2021 14:52:46 04/18/19 22 04/19/2021 COMPR EHENS DARRYL METAB OLIC PANEL protein, total 7.1 g/dL 6.1-8. 1 normal Not Available [address], [address], 04/19/2021 14:52:46 04/18/19 22 04/19/2021 COMPR EHENS DARRYL METAB OLIC PANEL albumin 4.1 g/dL 3.6-5. 1 normal Not Available [address], [address], 04/19/2021 14:52:46 04/18/19 22 04/19/2021 COMPR EHENS DARRYL METAB OLIC PANEL globulin 3.0 g/dL_ (calc ) 1.9-3. 7 normal Not Available [address], [address], 04/19/2021 14:52:46 04/18/19 22 04/19/2021 COMPR EHENS DARRYL METAB OLIC PANEL albumin/glob ulin ratio 1.4 (calc ) 1.0-2. 5 normal Not Available [address], [address], 04/19/2021 14:52:46 04/18/19 22 04/19/2021 COMPR EHENS DARRYL METAB OLIC PANEL bilirubin, total 0.4 mg/dL 0.2-1. 2 normal Not Available [address], [address], 04/19/2021 14:52:46 04/18/19 22 04/19/2021 COMPR EHENS DARRYL METAB OLIC PANEL alkaline phosphatase 64 U/L 35-144 normal Not Available [address] [address] [place], [address], 04/19/2021 14:52:46 04/18/19 22 04/19/2021 COMPR EHENS DARRYL METAB OLIC PANEL AST 19 U/L 10-35 normal Not Available [address], [address], 04/19/2021 14:52:46 04/18/19 22 04/19/2021 COMPR EHENS DARRYL METAB OLIC PANEL ALT 24 U/L 9-46 normal Not Available [address], [address], 04/19/2021 14:52:46 04/18/19 22 04/19/2021 LIPID PANEL WITH REFLE X TO DIREC T LDL cholesterol, total 124 mg/dL <200 normal Not Available [address], [address], 04/19/2021 14:52:46 04/18/19 22 04/19/2021 LIPID PANEL WITH REFLE X TO DIREC T LDL HDL cholesterol 45 mg/dL > or = 40 normal Not Available [address], [address], 04/19/2021 14:52:46 04/18/19 22 04/19/2021 LIPID PANEL WITH REFLE X TO DIREC T LDL triglyceride s 116 mg/dL <150 normal Not Available [address], [address], 04/19/2021 14:52:46 04/18/19 22 04/19/2021 LIPID PANEL WITH REFLE X TO DIREC T LDL LDL-choleste rol 59 mg/dL _(luz c) normal Refer ence range : <100 Colleen able range <100 mg/dL for prima ry preve ntion ; <70 mg/dL for patie nts with CHD or diabe tic patie nts with > or = 2 CHD risk facto rs. LDL-C is now calcu lated using the [facility] kins humau rommel n, which is a valid ated novel metho d provi barbara kelly r accur acy than the Fried felipe equat ion in the estim ation of LDL-C . Darlene n SS et al. YASIR. 2013; 310(1 9): 2061- 2068 (http ://ed ucati on.Qu Giovanna monteroMoxtra. com/f aq/FA Q164) Not Available [facility] [address] [place], [address], 04/19/2021 14:52:46 04/18/19 22 04/19/2021 LIPID PANEL WITH REFLE X TO DIREC T LDL chol/HDLC ratio 2.8 (calc ) <5.0 normal Not Available [address] [address] [address] , [place], [address], 04/19/2021 14:52:46 04/18/19 22 04/19/2021 LIPID PANEL WITH REFLE X TO DIREC T LDL non HDL cholesterol 79 mg/dL _(luz c) <130 normal For patie nts with diabe pierce plus 1 major ASCVD risk facto r, treat ing to a non-H DL-C goal of <100 mg/dL (LDL- C of <70 mg/dL ) is daniel marianoo n. Not Available [facility] [address] [place], [address], 04/19/2021 14:52:46 08/30/19 22 08/30/2021 HEMOG LOBIN A1C hemoglobin A1C 7.7 %_of_ total _HGB <5.7 high For someo ne witho ut known diabe pierce, a hemog lobin A1c value of 6.5% or great er indic ates that they may have diabe pierce and this shoul d be confi rmed with a follo w-up test. For someo ne with known diabe pierce, a value <7% indic ates that their diabe pierce is well contr olled and a value great er than or equal to 7% indic ates subop timal contr ol. A1c targe ts shoul d be indiv idual ized based on durat ion of diabe pierce, age, comor bid condi tions , and other consi derat ions. Curre ntly, no conse nsus exist s arnel jimenez use of hemog lobin A1c for diagn osis of diabe pierce for child amanda. Not Available [address], [address], 08/30/2021 19:33:23 08/30/1908/30/2021 TSH+F REE T4 TSH 2.85 mIU/L 0.40-4 .50 normal Not Available [facility] [address], [address], 08/30/2021 19:33:22 08/30/19 22 08/30/2021 TSH+F REE T4 T4, free 1.1 NG/dL 0.8-1. 8 normal Not Available [address], [address], 08/30/2021 19:33:22 08/30/19 22 08/30/2021 COMPR EHENS DARRYL METAB OLIC PANEL glucose 215 mg/dL 65-99 high Fasti ng refer ence inter hossein For someo ne witho ut known diabe pierce, a gluco se value >125 mg/dL indic ates that they may have diabe pierce and this shoul d be confi rmed with a follo w-up test. Not Available [employer] [address], [address], 08/30/2021 19:33:22 08/30/19 22 08/30/2021 COMPR EHENS DARRYL METAB OLIC PANEL urea nitrogen (BUN) 17 mg/dL 7-25 normal Not Available [employer] [facility] [address], [address], 08/30/2021 19:33:22 08/30/19 22 08/30/2021 COMPR EHENS DARRYL METAB OLIC PANEL creatinine 0.98 mg/dL 0.70-1 .33 normal For patie nts >49 years of age, the refer ence limit for Creat inine is appro ximat julisa 13% highe r for peopl e ident ified as Afric an-Am joss n. Not Available [address], [address], 08/30/2021 19:33:22 08/30/19 22 08/30/2021 COMPR EHENS DARRYL METAB OLIC PANEL eGFR non-afr. gibraltarian 86 mL/mi n/1.7 3m2 > or = 60 normal Not Available [address], [address], 08/30/2021 19:33:22 08/30/19 22 08/30/2021 COMPR EHENS DARRYL METAB OLIC PANEL eGFR 100 mL/mi n/1.7 3m2 > or = 60 normal Not Available [address], [address], 08/30/2021 19:33:22 08/30/19 22 08/30/2021 COMPR EHENS DARRYL METAB OLIC PANEL BUN/creatini ne ratio not applic able (calc ) 6-22 Not Available [address], [address], 08/30/2021 19:33:22 08/30/19 22 08/30/2021 COMPR EHENS DARRYL METAB OLIC PANEL sodium 137 mmol/ L 135-14 6 normal Not Available [address], [address], 08/30/2021 19:33:22 08/30/19 22 08/30/2021 COMPR EHENS DARRYL METAB OLIC PANEL potassium 4.7 mmol/ L 3.5-5. 3 normal Not Available [address], [address], 08/30/2021 19:33:22 08/30/19 22 08/30/2021 COMPR EHENS DARRYL METAB OLIC PANEL chloride 99 mmol/ L 98-110 normal Not Available [address], [address], 08/30/2021 19:33:22 08/30/19 22 08/30/2021 COMPR EHENS DARRYL METAB OLIC PANEL carbon dioxide 29 mmol/ L 20-32 normal Not Available [address], [address], 08/30/2021 19:33:22 08/30/19 22 08/30/2021 COMPR EHENS DARRYL METAB OLIC PANEL calcium 9.6 mg/dL 8.6-10 .3 normal Not Available [address], [address], 08/30/2021 19:33:22 08/30/19 22 08/30/2021 COMPR EHENS DARRYL METAB OLIC PANEL protein, total 7.4 g/dL 6.1-8. 1 normal Not Available [address], [address], 08/30/2021 19:33:22 08/30/19 22 08/30/2021 COMPR EHENS DARRYL METAB OLIC PANEL albumin 4.3 g/dL 3.6-5. 1 normal Not Available [address], [address], 08/30/2021 19:33:22 08/30/19 22 08/30/2021 COMPR EHENS DARRYL METAB OLIC PANEL globulin 3.1 g/dL_ (calc ) 1.9-3. 7 normal Not Available [address], [address], 08/30/2021 19:33:22 08/30/19 22 08/30/2021 COMPR EHENS DARRYL METAB OLIC PANEL albumin/glob ulin ratio 1.4 (calc ) 1.0-2. 5 normal Not Available [address] [place], [address], 08/30/2021 19:33:22 08/30/19 22 08/30/2021 COMPR EHENS DARRYL METAB OLIC PANEL bilirubin, total 0.5 mg/dL 0.2-1. 2 normal Not Available [address], [address], 08/30/2021 19:33:22 08/30/19 22 08/30/2021 COMPR EHENS DARRYL METAB OLIC PANEL alkaline phosphatase 68 U/L 35-144 normal Not Available [address], [address], 08/30/2021 19:33:22 08/30/19 22 08/30/2021 COMPR EHENS DARRYL METAB OLIC PANEL AST 15 U/L 10-35 normal Not Available [address], [address], 08/30/2021 19:33:22 08/30/19 22 08/30/2021 COMPR EHENS DARRYL METAB OLIC PANEL ALT 24 U/L 9-46 normal Not Available [address], [address], 08/30/2021 19:33:22 08/30/19 22 08/30/2021 LIPID PANEL WITH REFLE X TO DIREC T LDL cholesterol, total 133 mg/dL <200 normal Not Available [address], [address], 08/30/2021 19:33:21 08/30/19 22 08/30/2021 LIPID PANEL WITH REFLE X TO DIREC T LDL HDL cholesterol 40 mg/dL > or = 40 normal Not Available [address], [address], 08/30/2021 19:33:21 08/30/19 22 08/30/2021 LIPID PANEL WITH REFLE X TO DIREC T LDL triglyceride s 210 mg/dL <150 high If a non-f astin g speci men was colle cted, consi preston repea t trigl yceri de testi ng on a fasti ng speci men if clini patricia indic ated. Abhay worthington et al. J. of Clin. Lipid ol. 2015; 9:129 -169. Not Available [employer] [facility] [address] [place], [address], 08/30/2021 19:33:21 08/30/19 22 08/30/2021 LIPID PANEL WITH REFLE X TO DIREC T LDL LDL-choleste rol 65 mg/dL _(luz c) normal Refer ence range : <100 Colleen able range <100 mg/dL for prima ry preve ntion ; <70 mg/dL for patie nts with CHD or diabe tic patie nts with > or = 2 CHD risk facto rs. LDL-C is now calcu lated using the Darlene anglin-Hop kins anton carney n, which is a valid ated novel metho d provi ding leticia r accur acy than the Fried felipe equat ion in the estim ation of LDL-C . Darlene anglin SS et al. YASIR. 2013; 310(1 9): 2061- 2068 (http ://ed ucati on.Qu Giovanna StellaService. com/f aq/FA Q164) Not Available [employer] [facility] [address] [place], [address], 08/30/2021 19:33:21 08/30/19 22 08/30/2021 LIPID PANEL WITH REFLE X TO DIREC T LDL chol/HDLC ratio 3.3 (calc ) <5.0 normal Not Available [employer] [facility] [address] [place], [address], 08/30/2021 19:33:21 08/30/19 22 08/30/2021 LIPID PANEL WITH REFLE X TO DIREC T LDL non HDL cholesterol 93 mg/dL _(luz c) <130 normal For patie nts with diabe pierce plus 1 major ASCVD risk facto r, treat ing to a non-H DL-C goal of <100 mg/dL (LDL- C of <70 mg/dL ) is consi mariam givens n. Not Available [address] [address] [place], [address], 08/30/2021 19:33:21 02/14/20 22 02/15/2022 HEMOG LOBIN A1C hemoglobin A1C 7.5 %_of_ total _HGB <5.7 high For someo ne witho ut known diabe pierce, a hemog lobin A1c value of 6.5% or great er indic ates that they may have diabe pierce and this shoul d be confi rmed with a follo w-up test. For someo ne with known diabe pierce, a value <7% indic ates that their diabe pierce is well contr olled and a value great er than or equal to 7% indic ates subop timal contr ol. A1c targe ts shoul d be indiv idual ized based on durat ion of diabe pierce, age, comor bid condi tions , and other consi derat ions. Curre ntly, no conse nsus exist s arnel jimenez use of hemog lobin A1c for diagn osis of diabe pierce for child amanda. Not Available [address] [address] [place], [address], 02/15/2022 22:04:58 02/14/20 22 02/15/2022 TSH+F REE T4 TSH 2.94 mIU/L 0.40-4 .50 normal Not Available [facility] [address] [address] [place], [address], 02/15/2022 22:04:58 02/14/20 22 02/15/2022 TSH+F REE T4 T4, free 1.2 NG/dL 0.8-1. 8 normal Not Available [facility] [address] [address] [place], [address], 02/15/2022 22:04:58 02/14/20 22 02/15/2022 COMPR EHENS DARRYL METAB OLIC PANEL glucose 128 mg/dL 65-99 high Fasti ng refer ence inter hossein For someo ne witho ut known diabe pierce, a gluco se value >125 mg/dL indic ates that they may have diabe pierce and this shoul d be confi rmed with a follo w-up test. Not Available [employer] [address] [address] [place], [address], 02/15/2022 22:04:57 02/14/20 22 02/15/2022 COMPR EHENS DARRYL METAB OLIC PANEL urea nitrogen (BUN) 15 mg/dL 7-25 normal Not Available [address], [address], 02/15/2022 22:04:57 02/14/20 22 02/15/2022 COMPR EHENS DARRYL METAB OLIC PANEL creatinine 0.72 mg/dL 0.70-1 .30 normal Not Available [address] [address] [place], [address], 02/15/2022 22:04:57 02/14/20 22 02/15/2022 COMPR EHENS DARRYL METAB OLIC PANEL eGFR 107 mL/mi n/1.7 3m2 > or = 60 normal The eGFR is based on the CKD-E PI 2020 equat ion. To calcu late the new eGFR from a previ ous Creat inine or Cysta tin C resul t, go to https ://rhett maki.blanca eagle.o federico/josef mcgee/ kdoqi /gfr% 5Fcal culat or Not Available [employer] [address] [address] [place], [address], 02/15/2022 22:04:57 02/14/20 22 02/15/2022 COMPR EHENS DARRYL METAB OLIC PANEL BUN/creatini ne ratio not applic able (calc ) 6-22 Not Available [address] [address] [place], [address], 02/15/2022 22:04:57 02/14/20 22 02/15/2022 COMPR EHENS DARRYL METAB OLIC PANEL sodium 141 mmol/ L 135-14 6 normal Not Available [address], [address], 02/15/2022 22:04:57 02/14/20 22 02/15/2022 COMPR EHENS DARRYL METAB OLIC PANEL potassium 5.0 mmol/ L 3.5-5. 3 normal Not Available [address], [address], 02/15/2022 22:04:57 02/14/20 22 02/15/2022 COMPR EHENS DARRYL METAB OLIC PANEL chloride 103 mmol/ L 98-110 normal Not Available [address], [address], 02/15/2022 22:04:57 02/14/20 22 02/15/2022 COMPR EHENS DARRYL METAB OLIC PANEL carbon dioxide 32 mmol/ L 20-32 normal Not Available [address], [address], 02/15/2022 22:04:57 02/14/20 22 02/15/2022 COMPR EHENS DARRYL METAB OLIC PANEL calcium 9.2 mg/dL 8.6-10 .3 normal Not Available [address], [address], 02/15/2022 22:04:57 02/14/20 22 02/15/2022 COMPR EHENS DARRYL METAB OLIC PANEL protein, total 6.8 g/dL 6.1-8. 1 normal Not Available [address], [address], 02/15/2022 22:04:57 02/14/20 22 02/15/2022 COMPR EHENS DARRYL METAB OLIC PANEL albumin 4.0 g/dL 3.6-5. 1 normal Not Available [facility] [place] [address] [place], [address], 02/15/2022 22:04:57 02/14/20 22 02/15/2022 COMPR EHENS DARRYL METAB OLIC PANEL globulin 2.8 g/dL_ (calc ) 1.9-3. 7 normal Not Available [address] [address] [place], [address], 02/15/2022 22:04:57 02/14/20 22 02/15/2022 COMPR EHENS DARRYL METAB OLIC PANEL albumin/glob ulin ratio 1.4 (calc ) 1.0-2. 5 normal Not Available [address] [address] [place], [address], 02/15/2022 22:04:57 02/14/20 22 02/15/2022 COMPR EHENS DARRYL METAB OLIC PANEL bilirubin, total 0.3 mg/dL 0.2-1. 2 normal Not Available [address] [address] [place], [address], 02/15/2022 22:04:57 02/14/20 22 02/15/2022 COMPR EHENS DARRYL METAB OLIC PANEL alkaline phosphatase 64 U/L 35-144 normal Not Available [address] [address] [place], [address], 02/15/2022 22:04:57 02/14/20 22 02/15/2022 COMPR EHENS DARRYL METAB OLIC PANEL AST 16 U/L 10-35 normal Not Available [address] [address] [place], [address], 02/15/2022 22:04:57 02/14/20 22 02/15/2022 COMPR EHENS DARRYL METAB OLIC PANEL ALT 21 U/L 9-46 normal Not Available [address] [address] [place], [address], 02/15/2022 22:04:57 02/14/20 22 02/15/2022 LIPID PANEL , STAND CHARLES cholesterol, total 115 mg/dL <200 normal Not Available [address], [address], 02/15/2022 22:04:56 02/14/20 22 02/15/2022 LIPID PANEL , STAND CHARLES HDL cholesterol 41 mg/dL > or = 40 normal Not Available [address], [address], 02/15/2022 22:04:56 02/14/20 22 02/15/2022 LIPID PANEL , STAND CHARLES triglyceride s 100 mg/dL <150 normal Not Available [address], [address], 02/15/2022 22:04:56 02/14/20 22 02/15/2022 LIPID PANEL , STAND CHARLES LDL-choleste rol 55 mg/dL _(luz c) normal Refer ence range : <100 Colleen able range <100 mg/dL for prima ry preve ntion ; <70 mg/dL for patie nts with CHD or diabe tic patie nts with > or = 2 CHD risk facto rs. LDL-C is now calcu lated using the Darlene n-Hop kins calcu rommel n, which is a valid ated novel wayne kelly r accur acy than the Fried felipe equat ion in the estim ation of LDL-C . Darlene anglin SS et al. YASIR. 2013; 310(1 9): 2061- 2068 (http ://ed ucati on.Qu britneyDi Health-Connecteds. com/f aq/FA Q164) Not Available [address], [address], 02/15/2022 22:04:56 02/14/20 22 02/15/2022 LIPID PANEL , STAND CHARLES chol/HDLC ratio 2.8 (calc ) <5.0 normal Not Available [address] [place], [address], 02/15/2022 22:04:56 02/14/20 22 02/15/2022 LIPID PANEL , STAND CHARLES non HDL cholesterol 74 mg/dL _(luz c) <130 normal For patie nts with diabe pierce plus 1 major ASCVD risk facto r, treat ing to a non-H DL-C goal of <100 mg/dL (LDL- C of <70 mg/dL ) is consi dered a thera peuti c optio n. Not Available [address] [address] [place], [address], 02/15/2022 22:04:56 07/11/19 23 07/21/2022 LIPID PANEL WITH REFLE X TO DIREC T LDL cholesterol, total 142 mg/dL <200 normal Not Available [address] [place], [address], 07/21/2022 19:08:56 07/11/19 23 07/21/2022 LIPID PANEL WITH REFLE X TO DIREC T LDL HDL cholesterol 43 mg/dL > or = 40 normal Not Available [address], [address], 07/21/2022 19:08:56 07/11/19 23 07/21/2022 LIPID PANEL WITH REFLE X TO DIREC T LDL triglyceride s 123 mg/dL <150 normal Not Available [address] [address] [place], [address], 07/21/2022 19:08:56 07/11/19 23 07/21/2022 LIPID PANEL WITH REFLE X TO DIREC T LDL LDL-choleste rol 79 mg/dL _(luz c) normal Refer ence range : <100 Colleen able range <100 mg/dL for prima ry preve ntion ; <70 mg/dL for patie nts with CHD or diabe tic patie nts with > or = 2 CHD risk facto rs. LDL-C is now calcu lated using the Darlene n-Hop kins calcu latio n, which is a valid ated novel metho d provi ding leticia r accur acy than the Fried felipe equat ion in the estim ation of LDL-C . Darlene n SS et al. YASIR. 2013; 310(1 9): 2061- 2068 (http ://ed ucati on.Qu Giovanna monteroGloucester Pharmaceuticalss. com/f aq/FA Q164) Not Available [facility] [address] [address] [place], [address], 07/21/2022 19:08:56 07/11/1907/21/2022 LIPID PANEL WITH REFLE X TO DIREC T LDL chol/HDLC ratio 3.3 (calc ) <5.0 normal Not Available [facility] [address] [address] [place], [address], 07/21/2022 19:08:56 07/11/1907/21/2022 LIPID PANEL WITH REFLE X TO DIREC T LDL non HDL cholesterol 99 mg/dL _(luz c) <130 normal For patie nts with diabe pierce plus 1 major ASCVD risk facto r, treat ing to a non-H DL-C goal of <100 mg/dL (LDL- C of <70 mg/dL ) is consi dered a sammia jorge c optio n. Not Available [facility] [address] [address] [place], [address], 07/21/2022 19:08:56 07/11/1907/21/2022 COMPR EHENS DARRYL METAB OLIC PANEL glucose 142 mg/dL 65-99 high Fasti ng refer ence inter hossein For someo ne witho ut known diabe pierce, a gluco se value >125 mg/dL indic ates that they may have diabe pierce and this shoul d be confi rmed with a follo w-up test. Not Available [facility] [address] [address] [place], [address], 07/21/2022 19:08:57 07/11/1907/21/2022 COMPR EHENS DARRYL METAB OLIC PANEL urea nitrogen (BUN) 14 mg/dL 7-25 normal Not Available [address], [address], 07/21/2022 19:08:57 07/11/1907/21/2022 COMPR EHENS DARRYL METAB OLIC PANEL creatinine 0.84 mg/dL 0.70-1 .30 normal Not Available [employer] [address], [address], 07/21/2022 19:08:57 07/11/19 23 07/21/2022 COMPR EHENS DARRYL METAB OLIC PANEL eGFR 102 mL/mi n/1.7 3m2 > or = 60 normal The eGFR is based on the CKD-E PI 2020 equat ion. To calcu late the new eGFR from a previ ous Creat inine or Cysta tin C resul t, go to https ://rhett caballero/josef grimm s/ kdoqi /gfr% 5Fcal culat or Not Available [address], [address], 07/21/2022 19:08:57 07/11/1907/21/2022 COMPR EHENS DARRYL METAB OLIC PANEL BUN/creatini ne ratio NOT APPLIC ABLE (calc ) 6-22 Not Available [address], [address], 07/21/2022 19:08:57 07/11/1907/21/2022 COMPR EHENS DARRYL METAB OLIC PANEL sodium 137 mmol/ L 135-14 6 normal Not Available [address], [address], 07/21/2022 19:08:57 07/11/1907/21/2022 COMPR EHENS DARRYL METAB OLIC PANEL potassium 4.4 mmol/ L 3.5-5. 3 normal Not Available [employer] [address], [address], 07/21/2022 19:08:57 07/11/19 23 07/21/2022 COMPR EHENS DARRYL METAB OLIC PANEL chloride 102 mmol/ L 98-110 normal Not Available [address], [address], 07/21/2022 19:08:57 07/11/19 23 07/21/2022 COMPR EHENS DARRYL METAB OLIC PANEL carbon dioxide 28 mmol/ L 20-32 normal Not Available [address], [address], 07/21/2022 19:08:57 07/11/1907/21/2022 COMPR EHENS DARRYL METAB OLIC PANEL calcium 8.9 mg/dL 8.6-10 .3 normal Not Available [address], [address], 07/21/2022 19:08:57 07/11/1907/21/2022 COMPR EHENS DARRYL METAB OLIC PANEL protein, total 7.4 g/dL 6.1-8. 1 normal Not Available [address], [address], 07/21/2022 19:08:57 07/11/1907/21/2022 COMPR EHENS DARRYL METAB OLIC PANEL albumin 4.2 g/dL 3.6-5. 1 normal Not Available [address], [address], 07/21/2022 19:08:57 07/11/1907/21/2022 COMPR EHENS DARRYL METAB OLIC PANEL globulin 3.2 g/dL_ (calc ) 1.9-3. 7 normal Not Available [address], [address], 07/21/2022 19:08:57 07/11/19 23 07/21/2022 COMPR EHENS DARRYL METAB OLIC PANEL albumin/glob ulin ratio 1.3 (calc ) 1.0-2. 5 normal Not Available [address], [address], 07/21/2022 19:08:57 07/11/19 23 07/21/2022 COMPR EHENS DARRYL METAB OLIC PANEL bilirubin, total 0.4 mg/dL 0.2-1. 2 normal Not Available [address], [address], 07/21/2022 19:08:57 07/11/19 23 07/21/2022 COMPR EHENS DARRYL METAB OLIC PANEL alkaline phosphatase 64 U/L 35-144 normal Not Available [address], [address], 07/21/2022 19:08:57 07/11/19 23 07/21/2022 COMPR EHENS DARRYL METAB OLIC PANEL AST 16 U/L 10-35 normal Not Available [address], [address], 07/21/2022 19:08:57 07/11/19 23 07/21/2022 COMPR EHENS DARRYL METAB OLIC PANEL ALT 18 U/L 9-46 normal Not Available [address], [address], 07/21/2022 19:08:57 07/11/19 23 07/21/2022 ALBUM IN, RANDO M URINE W/CRE ATINI NE creatinine, random urine 259 mg/dL 20-320 normal Not Available [address], [address], 07/21/2022 19:08:57 07/11/19 23 07/21/2022 ALBUM IN, RANDO M URINE W/CRE ATINI NE albumin, urine 5.7 mg/dL see note: normal Refer ence Range : Refer ence Range Not estab lishe d Not Available [employer] [facility] [address] [place], [address], 07/21/2022 19:08:57 07/11/1907/21/2022 ALBUM IN, RANDO M URINE W/CRE ATINI NE albumin/crea tinine ratio, random urine 22 mcg/m g_cre at <30 normal The ADA defin es abnor malit ies in album in excre tion as follo ws: Album inuri a Categ ory Resul t (mcg/ mg creat inine ) Patricia l to Mildl y incre ased <30 Moder ately incre ased 30-29 9 Sever julisa incre ased > OR = 300 The ADA recom mends that at least two of three speci mens colle cted withi n a 3-6 month perio d be abnor mal befor e consi ralph g a patie nt to be withi n a diagn ostic categ ory. Not Available [employer] [facility] [address] [address] [address] , [place], [address], 07/21/2022 19:08:57 07/11/1907/21/2022 DEXAM ETHAS ONE dexamethason e 247 NG/dL Refer ence Range s for Dexam ethas one: Basel ine: Less than 20 ng/dL 1 mg dexam ethas one overn ight: 180-5 50 ng/dL (8:00 -10:0 0 AM) This test was devel oped and its milton tical perfo rmanc e violeta cteri stics have been deter mined by [facility] Will tranvishal . It has not been clear ed or appro victor hugo by FDA. This assay has been valid ated pursu ant to the CLIA regul ation s and is used for clini luz purpo ses. Not Available [employer] [facility] [address] [place], [address], 07/21/2022 19:08:58 07/11/1907/21/2022 CORTI KRAIG, A.M. cortisol, A.M. 5.6 mcg/d L normal Refer ence Range 8 a.m. (7-9 a.m.) Speci men: 4.0-2 2.0 Not Available [facility] [address] [address] [place], [address], 07/21/2022 19:08:59 07/11/1907/21/2022 TSH+F REE T4 TSH 1.69 mIU/L 0.40-4 .50 normal Not Available [facility] [address] [address] [place], [address], 07/21/2022 19:08:59 07/11/1907/21/2022 TSH+F REE T4 T4, free 1.3 NG/dL 0.8-1. 8 normal Not Available [facility] [address] [address] [place], [address], 07/21/2022 19:08:59 07/11/1907/21/2022 HEMOG LOBIN A1C hemoglobin A1C 7.7 %_of_ total _HGB <5.7 high For someo ne witho ut known diabe pierce, a hemog lobin A1c value of 6.5% or great er indic ates that they may have diabe pierce and this shoul d be confi rmed with a follo w-up test. For someo ne with known diabe pierce, a value <7% indic ates that their diabe pierce is well contr olled and a value great er than or equal to 7% indic ates subop timal contr ol. A1c targe ts shoul d be indiv idual ized based on durat ion of diabe pierce, age, comor bid condi tions , and other consi derat ions. Curre ntly, no conse nsus exist s regar ding use of hemog lobin A1c for diagn osis of diabe pierce for child amanda. Not Available [facility] [facility] [address] [address] [place], [address], 07/21/2022 19:09:00 08/15/1908/21/2022 ACTH, PLASM A acth, plasma 32 pg/mL 6-50 Refer ence range appli es only to speci mens colle cted betwe en 7am-1 0am. Not Available [employer] [facility] [address] [place], [address], 08/21/2022 15:26:34 08/15/19 23 08/21/2022 CORTI KRAIG, A.M. cortisol, A.M. 14.9 mcg/d L normal Refer ence Range 8 a.m. (7-9 a.m.) Speci men: 4.0-2 2.0 Not Available [facility] [address] [place], [address], 08/21/2022 15:26:35 09/18/19 23 09/17/2022 CT, adren al, w/ wo contr ast No observ ation record ed. [address] (Imaging) [address] [place] [address], [phone], 09/23/2022 16:30:48 09/18/19 23 09/17/2022 MRI, pitui tary, w/wo contr ast No observ ation record ed. [address] (Imaging) [address] [place] [address], [place], [address], 09/23/2022 16:31:00 09/19/19 23 09/18/2022 XR, knee No observ ation record ed. [address], [address], 09/23/2022 16:32:14 10/03/19 23 09/17/2022 CT, adren al, w/ wo contr ast No observ ation record ed. [email or web address] [facility] (Imaging) [address] [place] [address], [phone], 10/15/2022 14:12:28 Result Notes None recorded. Problems Name Problem SNOMED Code Status Onset Date Resolution Date Notes Provider Name and Address Organization Details Recorded Time Cortisol level outside reference range 885291178 Active 2022 Gabi De Paz, RMA null, [place] [facility] 3 15:44:10 Pituitary function test outside reference range 237482566 Active 2022 Demi Bess MD [address], [address], [place], [address] , [employer] [facility] [employer] 3 20:14:28 Adrenal adenoma 386497718 Active 2022 Demi Bess MD [address], [address], [place], [address] , [employer] [facility] [employer] 3 20:15:20 Essential hypertension 40550817 Active 2022 Demi Bess MD [address], [address], [place], [address] , [employer] [facility] [employer] 3 10:46:10 Pituitary microadenoma 022946373 Active 2022 Demi Bess MD [address], [address], [place], [address] , [employer] [facility] [employer] 3 22:17:29 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 2022 Demi Bess MD [address], [address], [place], [address] , [employer] [facility] [employer] 3 22:17:39 Well controlled type 2 diabetes mellitus 438681655 Active 2022 Demi Bess MD [address], [address], [place], [address] , [employer] [facility] [employer] 3 13:50:14 Dyslipidemia 528466301 Active 2021 Not Available [facility] 3 04:34:16 Diabetic peripheral neuropathy 977690478 Active 2021 Not Available [facility] 3 04:34:16 [employer]en[employer] 972681873 Active 2021 Not Available [employer] 3 04:34:16 Uncontrolled type 2 diabetes mellitus 873586279 Active 2021 Not Available [facility] 3 04:34:16 Problem Notes None recorded. Procedures Surgical History Date Name Laterality Status Provider Name and Address Organization Details Recorded Time Knee Surgery completed Not Available [facility] 04/28/2022 04:30:29 Sinus Surgery completed Not Available [facility] 04/28/2022 04:30:29 Imaging Results Imaging Date Name Status LastModified by Organiz ation Details LastModified Time 09/17/2022 CT, adrenal, w/ wo contrast completed [address] (Imaging) [address] [place] [address], [address], 09/23/2022 16:30:48 09/17/2022 MRI, pituitary, w/wo contrast completed [address] (Imaging) [address] [place] [address], [address], 09/23/2022 16:31:00 09/18/2022 XR, knee completed [address] [facility] [address] [place] [address], [address], 09/23/2022 16:32:14 09/17/2022 CT, adrenal, w/ wo contrast completed [address] (Imaging) [address] [place] [address], [address], 10/15/2022 14:12:28 Procedure Notes None recorded. Medical Equipment None Reported. Allergies No known drug allergies Medications Name Sig Start Date Stop Date Status Note LastModified by Organization Details LastModified Time Prescriptio n - Prior Authorizati on Request active Not Available Not Available N ot Available aspirin 81 mg capsule Take by oral route. 09/02 completed Not Available Not Available Not Available prednisone 10 mg tablet 04/12 completed Not Available Not Available Not Available doxycycline hyclate 100 mg capsule TAKE 1 CAPSULE BY MOUTH EVERY 12 HOURS FOR 7 DAYS 04/12 completed Not Available Not Available Not Available Humulin R U-500 (Concentrat ed) Insulin 500 unit/mL subcutaneou s soln active Not Available Not Available Not Available hydrocodone 5 mg-acetamin ophen 325 mg tablet 10/20 completed Not Available Not Available Not Available lisinopril 20 mg tablet Take 1 tablet every day by oral route. 09/02 completed Not Available Not Available Not Available simvastatin 10 mg tablet Take 1 tablet every day by oral route. 03/10 completed Not Available Not Available Not Available tramadol 50 mg tablet 09/02 completed Not Available Not Available Not Available ketorolac 0.5 % eye drops INSTILL 1 DROP IN RIGHT EYE EVERY 6 HOURS NEEDED FOR PAIN 09/02 completed Not Available Not Available Not Available Humalog U-100 Insulin 100 unit/mL subcutaneou s solution active Not Available Not Available N ot Available dexamethaso ne 1 mg tablet 09/02 completed Not Available Not Available Not Available Humulin R Regular U-100 Insulin 100 unit/mL injection solution INJECT 20 UNITS UNDER THE SKIN THREE TIMES DAILY AND EVERY NIGHT AT BEDTIME active Not Available Not Available No t Available simvastatin 20 mg tablet active Not Available Not Available Not Available lisinopril 10 mg tablet 10/20 completed Not Available Not Available Not Available polymyxin B sulfate 10,000 unit-trimet hoprim 1 mg/mL eye drops INSTILL 1 DROP IN RIGHT EYE EVERY 4 HOURS WHILE AWAKE FOR 7 DAYS. DO NOT EXCEED 6 DOSES IN 24 HOURS 09/02 completed Not Available Not Available Not Available Humulin N NPH U-100 Insulin (isophane susp) 100 unit/mL subcutaneou s 06/09 completed Not Available Not Available Not Available orphenadrin e citrate ER 100 mg tablet,exte nded release TAKE 1 TABLET BY MOUTH EVERY 12 HOURS NEEDED FOR MUSCLE SPASM active Not Available Not Available No t Available insulin syringe U-100 with needle 0.3 mL 31 gauge x 16 USE TO INJECT INSULIN FOUR TIMES DAILY active Not Available Not Available No t Available ibuprofen 600 mg tablet 04/12 completed Not Available Not Available Not Available lisinopril 40 mg tablet TAKE 1 TABLET DAILY DIRECTED active Not Available Not Available No t Available metformin ER 500 mg tablet,exte nded release 24 hr TAKE 2 TABLETS TWICE A DAY 2022 active Not Available Not Available Not Avai lable clobetasol 0.05 % topical spray APPLY 1 SPRAY TOPICALLY TO THE AFFECTED AREA TWICE DAILY active Not Available Not Available No t Available Humulin R Regular U-100 Insuln 12/09 completed Not Available Not Available Not Available simvastatin 11/08 completed Not Available Not Available Not Available lisinopril 11/08 completed Not Available Not Available Not Available Humalog U-100 Insulin 12/09 completed Not Available Not Available Not Available BD Insulin Syringe Ultra-Fine 1 mL 30 gauge x 1/2 active Not Available Not Available Not Available ProAir HFA 90 mcg/actuati on aerosol inhaler active Not Available Not Available Not Available Humalog KwikPen (U-100) Insulin 100 unit/mL subcutaneou s inject 15 units TID before meals active Not Available Not Available No t Available BD Ultra-Fine Rosario Pen Needle 32 gauge x 5/32 active Not Available Not Available Not Available Suprep Bowel Prep Kit 17.5 gram-3.13 gram-1.6 gram oral solution MIX AND DRINK DIRECTED 09/02 completed Not Available Not Available Not Available Tresiba FlexTouch U-200 insulin 200 unit/mL (3 mL) subcutaneou s pen Inject 90 units every day by subcutane ous route at bedtime for 90 days. 06/09 completed Not Available Not Available Not Available Humulin R U-500 (Conc) Insulin Kwikpen 500 unit/mL (3 mL) subcutaneou s INJECT UP TO 60 UNITS DAILY active Not Available Not Available No t Available BD Insulin Syringe U-500 1/2 mL 31 gauge x 15/64 active Not Available Not Available Not Available Fiasp FlexTouch U-100 Insulin 100 unit/mL (3 mL) subcutaneou s pen Inject 15 units 3 times a day by subcutane ous route before meals for 90 days. 12/09 completed Not Available Not Available Not Available Ozempic 1 mg/dose (2 mg/1.5 mL) subcutaneou s pen injector INJECT 1 MG UNDER THE SKIN EVERY WEEK DIRECTED active Not Available Not Available No t Available Ozempic 0.25 mg or 0.5 mg (2 mg/1.5 mL) subcutaneou s pen injector Inject 0.25 mg SC weekly x 4 weeks then increase to 0.5 mg SC weekly 04/12 completed Not Available Not Available Not Available Dexcom G6 Sensor device active Not Available Not Available Not Available Dexcom G6 [employer] active Not Available Not Available Not Available Dexcom G6 Transmitter device active Not Available Not Available Not Available Omnipod Dash Pods (Gen 4) subcutaneou s cartridge CHANGE PODS EVERY 3 DAYS active Not Available Not Available No t Available Gvoke HypoPen 2-Pack 1 mg/0.2 mL subcutaneou s auto-inject or Inject 1 mg as needed by subcutane ous route as directed for 1 day. 09/02 completed Not Available Not Available Not Available Ozempic 1 mg/dose (4 mg/3 mL) subcutaneou s pen injector Inject 1 mg every week by subcutane ous route at dinner for 90 days. active Not Available Not Available No t Available Mounjaro 5 mg/0.5 mL subcutaneou s pen injector INJECT 5 MG UNDER THE SKIN EVERY WEEK AT DINNER active Not Available Not Available No t Available Mounjaro 2.5 mg/0.5 mL subcutaneou s pen injector Inject 2.5 mg every week by subcutane ous route for 28 days. 04/12 completed Not Available Not Available Not Available Vitals Date Recorded Body mass index (BMI) Body height Oxygen saturation Oxygen saturation in Arterial blood by Pulse oximetry Heart rate Body temperature Body weight Systolic blood pressure Diastolic blood pressure Provider Name and Address Organization Details Last Updated DateTime 2 50.3 kg/m2 185.42 cm 97 % 97 % 72 /min 97.8 [degF] 596621. 49 g 120 mm[Hg] 80 mm[Hg] Not Available [facility] 3 04:31:47 Date Recorded Body mass index (BMI) Body height Oxygen saturation Oxygen saturation in Arterial blood by Pulse oximetry Heart rate Body temperature Body weight Systolic blood pressure Diastolic blood pressure Provider Name and Address Organization Details Last Updated DateTime 2 50.7 kg/m2 185.42 cm 97 % 97 % 72 /min 97.8 [degF] 627761. 47 g 140 mm[Hg] 80 mm[Hg] Not Available [facility] 3 04:31:47 Date Recorded Body mass index (BMI) Body height Oxygen saturation Oxygen saturation in Arterial blood by Pulse oximetry Heart rate Respiratory rate Body weight Provider Name and Address Organization Details Last Updated DateTime 2 50.7 kg/m2 185.42 cm 97 % 97 % 74 /min 18 /min 367090. 47 g Not Available [facility] 3 04:31:49 Date Recorded Body mass index (BMI) Body height Oxygen saturation Oxygen saturation in Arterial blood by Pulse oximetry Heart rate Body temperature Body weight Systolic blood pressure Diastolic blood pressure Provider Name and Address Organization Details Last Updated DateTime 3 49.9 kg/m2 185.42 cm 94 % 94 % 75 /min 97.4 [degF] 996353. 92 g 150 mm[Hg] 85 mm[Hg] Not Available [facility] 3 04:31:47 Date Recorded Body height Body mass index (BMI) Body weight Body temperature Heart rate Systolic blood pressure Diastolic blood pressure Provider Name and Address Organization Details Last Updated DateTime 3 185.42 cm 48 kg/m2 036551. 62 g 97.2 [degF] 61 /min 175 mm[Hg] 82 mm[Hg] SHARRI Nguyễn [place] [facility] 3 10:21:12 Social History Question Answer Notes LastModified by Organizat ion Details LastModified Time Tobacco Smoking Status Former Smoker quit 2018 Not Available [facility] 04/28/2022 04:10:29 What Is Your Level Of Alcohol Consumption? Occasional [id number] Information not available 04/28/2022 What Is Your Level Of Caffeine Consumption? Heavy [id number] Information not available 04/28/2022 How Much Tobacco Do You Chew? None [id number] Information not available 04/28/2022 In The 14 Days Before Symptom Onset, Have You Had Close Contact With A Laboratory-confir med COVID-19 While That Case Was Ill? No [id number] Information not available 04/28/2022 In The 14 Days Before Symptom Onset, Have You Had Close Contact With A Person Who Is Under Investigation For COVID-19 While That Person Was Ill? No [id number] Information not available 04/28/2022 Which Illicit Or Recreational Drugs Have You Used? None [id number] Information not available 04/28/2022 Do You Or Have You Ever Used E-cigarettes Or Vape? 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 02/08/2022 [id number] Information not available 04/28/2022 Have You Ever Been Counseled For Unhealthy Alcohol Use? No [id number] Information not available 04/28/2022 What Is Your Relationship Status? [id number] Information not available 04/28/2022 Do You Use Any Illicit Or Recreational Drugs? No MIGRATION.[id number] Information not available 04/28/2022 Has Tobacco Cessation Counseling Been Provided? No MIGRATION.24660 [id number] Information not available 04/28/2022 Have You Recently Traveled Abroad? No MIGRATION.11274 [id number] Information not available 04/28/2022 Do You Or Have You Ever Used Any Other Forms Of Tobacco Or Nicotine? No MIGRATION.86258 [id number] Information not available 04/28/2022 Sex: Male Functional Status None recorded. Mental Status None recorded. Family History Relationship Description Onset Age of this Age Resolved Age Notes LastModified by Organization Details LastModified Time Brother Diabetes mellitus [id number] Not available 04/28/2022 04:30:31 Brother Diabetes mellitus [id number] Not available 04/28/2022 04:30:31 Sister Diabetes mellitus [id number] Not available 04/28/2022 04:30:31 Father Diabetes mellitus [id number] Not available 04/28/2022 04:30:31 Medical History Condition Response DIABETES, TYPE Y OBESITY Y HAVE YOU BEEN HOSPITALIZED OR SEEN IN [facility] IN THE PAST YEAR ? Y HYPERTENSION Y Past Encounters Encounter ID Performer Location Encounter Start Date Encounter Closed Date Diagnosis/Indication Diagnosis SNOMED-CT Code Diagnosis ICD10 Code Diagnosis Note [id number] MD KENDELL Jones [facility] [address] [place] [address] 06/09/2020 00:00:00 06/09/2020 18:01:04 [id number] Demi Wood, MD [facility] [address] [place] [address] 09/22/2020 00:00:00 09/22/2020 17:38:48 [id number] Demi Bess MD [facility] [address] [place] [address] 01/27/2021 00:00:00 01/27/2021 18:48:33 [id number] Demi Bess MD [facility] [address] [place] [address] 05/04/2021 00:00:00 05/04/2021 20:57:58 [id number] [facility] [address] [place] [address] 10/20/2021 00:00:00 10/21/2021 12:05:51 [id number] Abhay Kohli, YOLANDA _ATHENA_Omar IGRATION_ DEFAULT_1 _1 , 02/08/2022 00:00:00 02/11/2022 15:04:03 [id number] Demi Bess MD [facility] [address] [place] [address] 04/12/2022 00:00:00 04/12/2022 19:45:25 [id number] Demi Bess MD [facility] [address] [place] [address] 09/02/2022 09:56:12 09/02/2022 10:57:14 Uncontrolled type 2 diabetes mellitus 143382523 E11.65 a1c of 7.7%- improved since starting mounjaro several months ago- patient tolerating better than ozempic with loss of 20 pounds. discussed uptitratin g to 7.5 mg weekly when patient is out of the 5 mg dose. Continue metformin for insulin sensitizat ion. continue settings as follows:12 a-6a 0.656a-12p 0.7512p-5p 0.55p-12a 0.45Carb ratio 1:9CF 50 Pituitary function test outside reference range 630193572 R94.7 ACTH high normal range with abnormal DST- send for MRI pituitary to screen for pituitary microadeno ma. Adrenal adenoma [id number] [address] adrenal to screen for hyperplasi a/ adenoma due to elevation of DST in setting of diabetes, hypertensi on and obesity. Essential hypertension 30022183 I10 Send for BP measuring kit for self monitoring at home. Dyslipidemia 560547157 E 78.5 continue on statin therapy. Spent up to 28 minutes preparing to see the patient (eg, review of tests), obtaining and/or reviewing separately obtained history, performing a medically appropriat e examinatio n and evaluation , counseling and educating the patient, ordering medication s, tests, along with documentin g clinical informatio n in the electronic health record, independen tly interpreti ng results and communicat ing results to the patient. RTC in 4 months. Patient was provided a handwritte n lab order which contains our fax number. If he chooses to go outside of the [facility] system to obtain labwork he was advised to provide our fax number and my informatio n to the lab he will be obtaining labwork from in order to have his labs properly forwarded over for me to review so there is no loss of follow up due to use of outside network. He was also advised to contact our clinic informing us that he has completed his labwork so we are aware we will need to reach out to the appropriat e laboratory to request his results be forwarded to us so I might have the ability to review and make further medical decision making in his case. He voiced understand ing. Health Concerns Section Related Observation LastModified by Organization Detai ls LastModified Time None Recorded Concern Status LastModified by Organization Details LastModified Time None Recorded Advance Directives Directive None Recorded Payers Encounter Date Sequence Insurance Name Policy Number Policy Miles Covered Member ID Miles Member ID Guarantor Name 09/02/2022 1 [employer] [id number] Gerald Monteiro [id number] Gerald Monteiro Notes Date Note Type Note Provider Name and Address Organization Details Recorded Time 09/02/2022 text/html 56 yo male comes in for follow up in management of uncontrolled type 2 DM (A1C of 7.7%), dyslipidemia. last seen in Mar at that time we had patient continue current settings as follows:12a-6a 0.656a-12p 0.7512p-5p 0.55p-12a 0.45Carb ratio 1:9CF 50 He does get low overnight down to 60 mg/dL on occasion- once a month if that- he states it is from his diet. We had patient transition off ozempic to mounjaro 5 mg once weekly for insulin sensitization and to help with portion control. We continued metformin. labs from 08/20:acth 32 pg/ML We have since recommended imaging of pituitary and adrenal glands.He hasn't completed the salivary or urinary cortisol levels He likes the mounjaro and doesn't make him as sick as the ozempic. He is eating half of what he used to eat. His blood pressure is running better on the 40 mg of lisinopril-he just started this one week ago. His heart feels racy- he does drink caffeine and he is trying to limit this now. labs from 07/20:a1c 7.7%TSH of 1.69 uIU/mlFT4 of 1.3 ng/dLdexa of 257 ug/mG142/123/43/79gluco se 142 mg/dlCr normalLFT normalmicroalbumin 22 ug/mg Demi Bess MD [address] [facility], [facility] [address], [place], [address], [facility] 09/02/2022 14:06:51
--- OUTSIDE RECORDS SUMMARY | 2024-07-08 18:47 | XMS_ITS | Clinical Summary ---
Author Organization [facility] Address [address] [place] [address] Care Team Providers Care Senior Sales Executive Name Role Phone Unavailable Primary Care Provider [...]
[2024-07-08 19:10] LABS: Basophils Absolute Auto 0.1 K/mm3 (0.0-0.1); Basophils Percent Auto 0.4 % (0.2-1.2); Eosinophils Absolute Auto 0.3 K/mm3 (0-0.3); Eosinophils Percent Auto 2.2 % (0-4.4); Hematocrit 44.9 % (42.0-52.0); Immature Granulocyte Absolute 0.04 K/mm3 (0.00-0.031); Immature Granulocyte Percent A 0.3 % (0-0.5); Lymphocytes Absolute Auto 2.24 K/mm3 (0.9-3.2); Lymphocytes Percent Auto 19.4 % (18.3-44.2); Mean Corpuscular HGB Conc 33.4 g/dl (32-36); Mean Corpuscular Hemoglobin 27.8 pg (26-34); Mean Corpuscular Volume 83.1 fl (80-100); Mean Platelet Volume 8.6 fl (7.4-10.4); Monocytes Absolute Auto 0.8 K/mm3 (0.1-0.6); Neutrophils Absolute Auto 8.1 K/mm3 (1.3-6.7); Neutrophils Percent Auto 70.7 % (45.5-73.1); Platelet Count Result 219 k/mm3 (150-375); Red Cell Distribution Width 13.2 % (11.5-14.5); White Blood Count 11.5 K/mm3 (4.5-10.0)
--- NOTE | 2024-07-08 19:16 | ED_ITS ---
HPI - Abdominal Pain General Chief Complaint: Abdominal Pain Stated Complaint: right kidney pain Time Seen by Provider: 07/08/24 18:37 Source: patient Mode of arrival: ambulatory Limitations: no limitations History of Present Illness HPI narrative: This is a 58-year-old male that presents to the emergency department for right flank pain. Ongoing over the last couple of days. Does report some worsening with movement. He tried taking a tramadol at home with little relief. Denies fevers, vomiting, dysuria, hematuria. Related Data Allergies Allergy/AdvReac Type Severity Reaction Status Date / Time adhesive Allergy Mild rash Verified 07/08/24 17:46 Review of Systems 2 Review of Systems: CONSTITUTIONAL: Denies fever GASTROINTESTINAL: Reports abdominal pain. Denies nausea, vomiting, or diarrhea. GENITOURINARY: Denies dysuria or hematuria. All systems reviewed & are unremarkable except as noted in HPI and below PMFSH Past Medical History Medical History Onychomycosis of toenail Incidental adrenal cortical adenoma Benign per imaging criteria Pituitary adenoma Paronychia Obesity, morbid, BMI 50 or higher Essential (primary) hypertension Hypogonadism in male Mixed hyperlipidemia Obstructive sleep apnea syndrome Type 1 diabetes mellitus with diabetic neuropathy Surgical History Surgical History H/O sinus surgery H/O arthroscopic knee surgery Family History Family History Father Family history of coronary artery disease Alcoholism Hypertension Diabetes mellitus Sibling Diabetes mellitus Hypertension Grandparent Hypertension Grandparent Diabetes mellitus Hypertension Heart disease Social History Social History Smoking packs per day: 2 Smoking cigarettes per day: 40.0 Years smoked: 20 Smoking pack-years: 40.00 Smoking status: Never smoker Second hand tobacco smoke exposure: Yes Smoking end date: 02/29/16 Alcohol intake: current Alcohol use details: RARE Substance use: never Substance use type: does not use Do You Feel Safe in your Home?: Yes Lack of Transportation: No Lack of Food: Never True Current Housing: I Have Housing Concerned About Future Housing: No Difficulty Paying Gas/Electric Bills: No Difficulty Paying for Meds: No Currently Unemployed: No Education: Master's Degree or Higher Difficulty w/ Childcare or Family Care: No Living arrangements: with family Occupation/Education: occupation Gender identity (if verbalized by the patient): Male Sexual Orientation (if Verbalized by the Patient): Straight or Heterosexual Spiritual care concerns: No Agree to blood products: Yes Exam 2 Narrative: GENERAL: Well-appearing, obese, and in no acute distress. HEAD: Normocephalic, atraumatic. EYES: EOMI. CHEST: Clear to auscultation. No respiratory distress. No wheezes rales or rhonchi HEART: Regular rate and rhythm. No murmur heard. Normal peripheral pulses. ABDOMEN: Soft, nontender, nondistended, normal active bowel sounds. EXTREMITIES: Normal range of motion. No edema. SKIN: Warm, dry, no rash. NEURO: No focal deficits. Alert and oriented x3. PSYCH: Normal mood and affect Course Course Emergency Course: Patient updated on his workup and agrees with plan of care Vital Signs Vital signs: Vital Signs Temperature 97.8 F 07/08/24 18:03 Pulse Rate 82 07/08/24 18:03 Respiratory Rate 20 07/08/24 18:03 Blood Pressure 177/73 H 07/08/24 18:03 Pulse Oximetry 97 07/08/24 18:03 Temperature 97.8 F 07/08/24 18:03 Pulse Rate 87 07/08/24 19:31 Respiratory Rate 16 07/08/24 19:31 Blood Pressure 139/69 07/08/24 19:31 Pulse Oximetry 95 07/08/24 19:31 MDM - Abdominal Pain MDM Narrative Medical decision making narrative: Patient presents the emergency department for right-sided mid to low back pain. Patient is afebrile and nontoxic appearing. Blood pressure elevated upon arrival, this normalized with pain management. CBC with leukocytosis to 11.5. Metabolic panel without concerning findings. Urine with 6-10 white blood cells, 6-10 red blood cells. This will be sent for culture. Patient is not having any urinary symptoms. CT abdomen pelvis without acute findings. Patient updated on his workup and agrees with plan of care. He is to follow up with primary provider. He was given warnings to return to the ER Differential Diagnosis Differential diagnosis: Likely calculus of kidney, constipation, diverticulitis and other (Biliary colic, muscle strain, radiculopathy) Lab Data Attestation: I reviewed the patient's lab results. 07/08/24 19:05 07/08/24 19:05 Labs: Lab Results 07/08/24 07/08/24 Range/Units 19:05 19:39 WBC 11.5 H (4.5-10.0) K/mm3 RBC 5.40 (4.6-6.20) M/mm3 Hgb 15.0 (14.0-18.0) g/dL Hct 44.9 (42.0-52.0) % MCV 83.1 (80-100) fl MCH 27.8 (26-34) pg MCHC 33.4 (32-36) g/dl RDW 13.2 (11.5-14.5) % Plt Count 219 (150-375) k/mm3 MPV 8.6 (7.4-10.4) fl Immature Gran % (Auto) 0.3 (0-0.5) % Neut % (Auto) 70.7 (45.5-73.1) % Lymph % (Auto) 19.4 (18.3-44.2) % [place] % (Auto) 7.0 (2.6-8.5) % Eos % (Auto) 2.2 (0-4.4) % Baso % (Auto) 0.4 (0.2-1.2) % Lymph # (Auto) 2.24 (0.9-3.2) K/mm3 [place] # (Auto) 0.8 H (0.1-0.6) K/mm3 Eos # (Auto) 0.3 (0-0.3) K/mm3 Baso # (Auto) 0.1 (0.0-0.1) K/mm3 Abs Immat Gran (auto) 0.04 H (0.00-0.031) K/mm3 Absolute Neuts (auto) 8.1 H (1.3-6.7) K/mm3 Absolute Nucleated RBC 0.000 (0.0-0.012) K/mm3 Nucleated RBC % 0.0 (0.0-0.2) % Sodium 137 (137-145) mmol/L Potassium 4.2 (3.4-5.0) mmol/L Chloride 102 (98-107) mmol/L Carbon Dioxide 26 (22-30) mmol/L Anion Gap 9 (4-12) mmol/L BUN 18 (9-20) mg/dL Creatinine 0.82 (0.7-1.3) mg/dL Estim Creat Clear Calc 140 ml/min Estimated GFR > 60 (59 - ) Glucose 156 H (65-110) mg/dL Calcium 8.5 (8.4-10.2) mg/dL Total Bilirubin 0.4 (0.2-1.3) mg/dL AST 32 (17-59) U/L ALT 23 (6-50) U/L Alkaline Phosphatase 80 (38-126) U/L Total Protein 8.0 (6.3-8.2) g/dL Albumin 4.3 (3.5-5.1) g/dL Lipase 35 (23-300) U/L Urine Color Yellow (Yellow) Urine Appearance Clear (Clear) Urine pH 5.5 (5.0-9.0) Ur Specific [place] 1.027 (1.001-1.035) Urine Protein Negative (Negative) mg/dL Urine Glucose (UA) Negative (Negative) mg/dL Urine Ketones 1+ H (Negative) mg/dL Ur Blood (Man) Negative (Negative) Urine Nitrate Negative (Negative) Urine Bilirubin Negative (Negative) Urine Urobilinogen 1.0 (<2.0) mg/dL Add Ur Microanalysis Reviewed Leukocyte Esterase Rfl Trace H (Negative) JOSE/UL Urine RBC 6-10 H (0-2) /hpf Urine WBC 6-10 H (0-3) /hpf Ur Squamous Epith Cells Occasional (Few) /hpf Urine Bacteria None seen /hpf Urine Casts 0-2 Imaging Data Radiologist's impression: ITS Impressions Abdomen/Pelvis CT 07/08/24 20:38 IMPRESSION: No evidence of appendicitis, diverticulitis or intestinal obstruction. Critical Care Time Critical Care Time Critical Care Time: No Discharge Plan Discharge Clinical Impression: Low back pain Qualifiers: Chronicity: acute Back pain laterality: right Sciatica presence: without sciatica Qualified Code(s): M54.50 - Low back pain, unspecified Patient Disposition: Home Condition: Stable Instructions: Back Pain (ED) Additional Instructions: Return to the ER if you experience fever, abdominal pain with nausea and vomiting, you are unable to keep down liquids or solids, pain or burning with urination, blood in the urine, weakness, numbness, bowel/bladder incontinence, or any other symptoms that are concerning to you Rest, use ice/heat, take anti-inflammatories (Aleve, Ibuprofen, Naproxen, etc) or Tylenol as needed for pain as well as muscle relaxer (Flexeril) as needed for pain. Muscle relaxers can make you drowsy, do not drive if you take this Follow up with your primary care doctor Patient Language: Russian Prescriptions: New cyclobenzaprine 10 mg tablet 10 mg PO TID PRN (Reason: muscle spasm) Qty: 14 0RF No Action (DME) Omnipod 5 G6-G7 Pods (Gen 5) Cartridge See Rx Instructions .Route Qty: 30 3RF Rx Instructions: change it every 3 days (DME) Omnipod 5 G6-G7 Intro Kt(Gen5) Cartridge See Rx Instructions .Route Qty: 1 0RF Rx Instructions: As directed amlodipine 10 mg tablet 10 mg PO DAILY Qty: 90 1RF Humulin R U-500 (Conc) Insulin 500 unit/mL solution 200 unit continuous subcutaneous infusion DAILY 90 Days Qty: 40 1RF testosterone [AndroGel] 20.25 mg/1.25 gram (1.62 %) gel in metered-dose pump 2 pump topical DAILY 90 Days Qty: 225 1RF Rx Instructions: apply 2 pump amount over max area of upper arms and shoulders (DME) Dexcom G6 Transmitter Device See Rx Instructions .Route Qty: 1 3RF Rx Instructions: As directed (DME) Dexcom G6 Medical Technical Writer Misc See Rx Instructions .Route Qty: 1 3RF Rx Instructions: As directed simvastatin 20 mg tablet 20 mg PO DAILY Qty: 90 3RF (DME) Dexcom G6 Sensor Device See Rx Instructions .Route Qty: 3 4RF Rx Instructions: As directed lisinopril 40 mg tablet 40 mg PO DAILY Qty: 90 1RF (DME) insulin U-500 syringe-needle 1/2 mL 31 gauge x 15/64 syringe See Rx Instructions .Route Qty: 100 0RF Rx Instructions: when pump not working triamcinolone acetonide 0.1 % cream 1 applic topical BID Qty: 80 0RF Zepbound 2.5 mg/0.5 mL pen injector 2.5 mg subcut WEEKLY Qty: 2 0RF Rx Instructions: for 4 weeks sildenafil [Viagra] 50 mg tablet 50 mg PO .COMPLEX PRN (Reason: sexual activity) Qty: 30 0RF Rx Instructions: 50 mg orally PRN; administer 30 minutes to 4 hours before activity Follow-up/Referrals: Lucretia Randolph MD [Primary Care Provider] -
[2024-07-08 19:21] LABS: Alanine Aminotransferase 23 U/L (6-50); Albumin Level 4.3 g/dL (3.5-5.1); Alkaline Phosphatase 80 U/L (38-126); Anion Gap 9 mmol/L (4-12); Aspartate Amino Transferase 32 U/L (17-59); Bilirubin,Total 0.4 mg/dL (0.2-1.3); Blood Urea Nitrogen 18 mg/dL (9-20); Calcium 8.5 mg/dL (8.4-10.2); Carbon Dioxide 26 mmol/L (22-30); Chloride 102 mmol/L (98-107); Estimated CRCL calculation 140 ml/min; Estimated Glomerular Filt Rate > 60; Glucose 156 mg/dL (65-110); Lipase 35 U/L (23-300); Potassium 4.2 mmol/L (3.4-5.0); Sodium 137 mmol/L (137-145)
--- NOTE | 2024-07-08 19:37 | PC.NURSE ---
patient states that he took a 20mg edible at 1800.
[2024-07-08] MEDS: ONDANSETRON INJ 4 MG/2 ML VIAL IV PUSH (19:47)
[2024-07-08] MEDS: MORPHINE SULFATE (*CRX) 4 MG/ML INJ IV PUSH (19:47)
[2024-07-08 20:15] LABS: Add Urine Microscopic? YES; Appearance Urine Clear (Clear); Bilirubin Urine Negative (Negative); Blood Urine Negative (Negative); Color Urine Yellow (Yellow); Glucose Urine UA Negative (Negative); Ketones Urine 1+ mg/dL (Negative); Leukocyte Esterase Ur Trace LEU/UL (Negative); Nitrate Urine Negative (Negative); Protein Urine Negative (Negative); Specific Grav Ur 1.027 (1.001-1.035); pH Urine 5.5 (5.0-9.0)
[2024-07-08 20:18] LABS: Need Manual Microscopic Reviewed
[2024-07-08 20:19] LABS: Bacteria Urine None Seen /hpf; Non Pathogenic Casts 0-2; Squamous Epithelial Cell Urine Occasional /hpf (Few)
== END 2024-07-08 21:46 | disposition home or self-care (01) ==
PROVIDERS: Emergency Provider Physician Assistant; PCP Family Medicine
DX: M54.50 Low back pain, unspecified (principal); E78.2 Mixed hyperlipidemia; E10.9 Type 1 diabetes mellitus without complications; I10 Essential (primary) hypertension; F17.210 Nicotine dependence, cigarettes, uncomplicated
CPT/HCPCS: 36415; 74177; 80053; 81001; 83690; 85025; 87086; 96374; 96375; 99284; J2270; J2405; Q9967